=== PATIENT | female | born 1995 | race Caucasian/White ===

== ENCOUNTER 2021-03-10 12:45 | Emergency (ER) | payer OTHER, SELFPAY ==
[2021-03-10 13:00] VITALS: BP 128/92; PULSE 113; RESP 16; TEMP 37.1; O2SAT 99
--- NOTE | 2021-03-10 13:11 | ED.URI ---
HPI - URI/Sore Throat General Chief Complaint: Upper Respiratory Infection Stated Complaint: HEAD/BODY ACHES/CHILLS History of Present Illness HPI Narrative: This is a 25 year old with body aches, head ache, fever and loss of taste that started yesterday. Patient was around someone all weekend who tested positive on Monday. She is worried that she is positive. Patient has not had her vaccination for covid Related Data Allergies Allergy/AdvReac Type Severity Reaction Status Date / Time No Known Allergies Allergy Verified 03/10/21 13:16 Review of Systems Review of Systems: Narrative: CONSTITUTIONAL: reports fever, chills, or sweats. EYES: Denies visual changes, redness, or discharge. ENT: reports rhinorrhea, congestion, sore throat, or otalgia. CARDIOVASCULAR:Denies chest pain, palpitations, or edema. RESPIRATORY: Denies cough or dyspnea. GASTROINTESTINAL: Denies abdominal pain, reports nausea, vomiting, or diarrhea. GENITOURINARY: Denies dysuria or hematuria. SKIN:[Denies rash or itching. MUSCULOSKELETAL:Denies back pain, joint pain, or myalgia. NEUROLOGIC: Denies headache, numbness, or weakness. PSYCHIATRIC:Denies anxiety or depression PMFSH Social History Social History Gender identity (if verbalized by the patient): Female Comments At time as signature, I have reviewed and agree with nursing past medical, social, surgical and family history. Please see nursing chart for further information. There is no relevant family history pertinent to the presenting complaint. Exam Narrative: Exam Narrative: GENERAL:Well-appearing, well-nourished, and in no acute distress. lethargy HEAD:Normocephalic, atraumatic. EYES: PERRLA and EOMI. ENT: Nares clear, moderate rhinorrhea Mild great Mucous membranes moist. Pharyngeal erythema NECK: Supple. CHEST: Clear to auscultation. No respiratory distress. HEART: Regular rate and rhythm. No murmur heard. Normal peripheral pulses. ABDOMEN: Soft, nontender, nondistended, normal active bowel sounds. nausea and diarrhea EXTREMITIES: Normal range of motion. No edema. SKIN: Warm, dry, no rash. NEURO: No focal deficits. Alert and oriented x3. 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 Test positive Vital Signs Vital signs: Vital Signs Temperature 98.7 F 03/10/21 13:00 Pulse Rate 113 H 07/21/21 13:00 Respiratory Rate 16 03/10/21 13:00 Blood Pressure 128/92 H 03/10/21 13:00 Pulse Oximetry 99 03/10/21 13:00 Temperature 98.7 F 03/10/21 13:00 Pulse Rate 113 H 03/10/21 13:00 Respiratory Rate 16 03/10/21 13:00 Blood Pressure 128/92 H 03/10/21 13:00 Pulse Oximetry 99 03/10/21 13:00 MDM - URI/Sore Throat Differential Diagnosis Differential diagnosis: Likely upper respiratory infection, viral infection, bronchitis, influenza and pharyngitis Lab Data Labs: Lab Results 03/10/21 Range/Units 13:11 POC SARS CoV-2 Ag Positive (Negative) Discharge Plan Discharge Clinical Impression: COVID-19 Patient Disposition: Home, Self-Care Condition: Stable Instructions: Antibiotic Form, COVID-19 (Coronavirus Disease 2019) (ED), Face Coverings (Masks) and COVID-19 (ED) Additional Instructions: instructions FOR THE PATIENT AND HOUSEHOLD MEMBERS: Self-quarantine for at least 7 days from symptom onset plus 3 days after being symptom free. When self-quarantined, stay home and practice infection prevention practices including: ? Stay home when you are sick (fever, cough, upper respiratory infection symptoms) ? Wash your hands often with soap and water for 20 seconds or use an alcohol-based hand assistant infant teacher, especially before eating, after coughing or sneezing and after using the bathroom. ? Cover your cough or sneeze with a tissue and put the tissue in the trash. ? Avoid close contact with people who are sick. ? Avoid touching your nose, eyes and mouth. ? Clean and disinfect frequently touched objects and surfaces using a regular household elver
== END 2021-03-10 13:22 | disposition home or self-care (01) ==
PROVIDERS: Emergency Provider Nurse Practitioner Family; PCP Nurse Practitioner Adult Health
DX: U07.1 COVID-19 (principal); E03.9 Hypothyroidism, unspecified; Z86.16 Personal history of COVID-19
CPT/HCPCS: 87426; 99213; C9803; G0463

== ENCOUNTER → 2021-09-10 15:33 | Outpatient (CLI) | payer OTHER, SELFPAY ==
--- NOTE | ~2021-09-10 | US_ITS ---
EXAMINATION: US OB <= 14 weeks fetus DATE: 09/10/2021 15:57 INDICATION: First trimester dating and viability assessment TECHNIQUE: Real-time pelvic transabdominal and transvaginal ultrasound was performed. COMPARISON: None. FINDINGS: The uterus measures 15 x 7.1 x 9.1 cm. There is an intrauterine gestational sac. A yolk sa c is identified. heart motion is identified measuring 155 beats per minute (bpm) by M-mode Dopp ler. The crown rump length measures 6.1 cm , which correlates with an estimated gestational age of 12 weeks and 4 day(s) (+/-) 8 day(s). The ovaries are not visualized however no adnexal abnormality is seen. There is no free fluid in the pelvis. IMPRESSION: 1. Live intrauterine with an estimated gestational age of 12 weeks and 4 day(s) (+/-) 8 day (s) and an estimated delivery date of 03/21/2022. Reviewed, dictated and finalized at location F. NSIONAL INSPECTOR IMPRESSION: 1. Live intrauterine with an estimated gestational age of 12 weeks an d 4 day(s) (+/-) 8 day(s) and an estimated delivery date of 03/21/2022.
== END ==
PROVIDERS: Visit Provider Obstetrics & Gynecology
DX: N94.89 Other specified conditions associated with female genital organs and menstrual cycle (principal); Z36.9 Encounter for antenatal screening, unspecified; Z3A.12 12 weeks gestation of pregnancy
CPT/HCPCS: 76801

== ENCOUNTER 2021-09-29 11:13 | Outpatient (CLI) | payer OTHER, SELFPAY ==
[2021-09-29 11:48] VITALS: BP 132/69; PULSE 95
[2021-09-29 11:59] LABS: Basophils Percent Auto 0.3 % (0.2-1.2); Eosinophils Percent Auto 0.3 % (0-4.4); Hematocrit 36.5 % (37.0-47.0); Hemoglobin 12.5 g/dL (12.0-15.0); Immature Granulocyte Absolute 0.01 K/mm3 (0.00-0.031); Immature Granulocyte Percent A 0.1 % (0-0.5); Lymphocytes Absolute Auto 1.86 K/mm3 (0.9-3.2); Lymphocytes Percent Auto 20.7 % (18.3-44.2); Mean Corpuscular HGB Conc 34.2 g/dl (32-36); Mean Corpuscular Hemoglobin 27.7 pg (26-34); Mean Corpuscular Volume 80.8 fl (80-100); Mean Platelet Volume 8.7 fl (7.4-10.4); Monocytes Absolute Auto 0.4 K/mm3 (0.1-0.6); Monocytes Percent Auto 4.3 % (2.6-8.5); Neutrophils Absolute Auto 6.7 K/mm3 (1.3-6.7); Neutrophils Percent Auto 74.3 % (45.5-73.1); Platelet Count Result 309 k/mm3 (150-375); Red Blood Count 4.52 M/mm3 (4.2-5.4)
[2021-09-29 12:00] LABS: Add Urine Microscopic? YES; Appearance Urine Clear (Clear); Bilirubin Urine Negative (Negative); Blood Urine Negative (Negative); Color Urine Straw (Yellow); Glucose Urine UA Negative (Negative); Ketones Urine Negative (Negative); Leukocyte Esterase Ur Trace LEU/UL (NEGATIVE); Mucus Urine Rare /lpf; Nitrate Urine Negative (Negative); Protein Urine Negative (Negative); RBC Urine 0-2 /hpf (0-2); Squamous Epithelial Cell Urine Rare /hpf (Few); Urobilinogen Urine Negative mg/dL (<2.0); WBC Urine 0-3 /hpf (0-3)
[2021-09-29 12:01] VITALS: BP 112/67; PULSE 75
[2021-09-29 12:04] LABS: Creatinine Urine 17.9 mg/dL; Total Protein Urine Random 15 mg/dL; Ur Ttl Prot Creatinine Ratio 0.84 mg/mg (0-0.20)
[2021-09-29 12:06] LABS: Alanine Aminotransferase 17 U/L (4-35); Albumin Level 4.1 g/dL (3.5-5.1); Alkaline Phosphatase 85 U/L (38-126); Anion Gap 6 mmol/L (8-16); Aspartate Amino Transferase 23 U/L (14-36); Bilirubin,Total 0.5 mg/dL (0.2-1.3); Blood Urea Nitrogen 4 mg/dL (7-17); Calcium 9.6 mg/dL (8.4-10.2); Carbon Dioxide 21 mmol/L (22-30); Chloride 106 mmol/L (98-107); Estimated Glomerular Filt Rate > 60; Glucose 81 mg/dL (65-110); Potassium 3.6 mmol/L (3.4-5.0); Sodium 133 mmol/L (137-145); Uric Acid 4.1 mg/dL (2.5-7.5)
[2021-09-29 12:15] VITALS: BP 114/59; PULSE 98
[2021-09-29 12:17] LABS: Specific Grav Ur 1.001 (1.001-1.035)
[2021-09-29 12:31] VITALS: BP 87/50; PULSE 102
== END 2021-09-29 12:45 | disposition home or self-care (01) ==
LOC: ANHOBOP 11:19 → ANHOBPP 11:20
PROVIDERS: PCP Nurse Practitioner Adult Health; Visit Provider Obstetrics & Gynecology
DX: R80.9 Proteinuria, unspecified (principal)
CPT/HCPCS: 36415; 80053; 81001; 82570; 84156; 84550; 85025; 87086; 87088; 99199

== ENCOUNTER 2021-09-30 13:31 | Outpatient (CLI) | payer OTHER, SELFPAY ==
[2021-09-30 13:52] VITALS: BMI 42.4
[2021-09-30 15:35] LABS: Collection Time Urine 24 HOURS; Patient Weight 217 Lbs; Total Volume 24 Hour Urine 2000 ml
[2021-09-30 15:44] LABS: Creatinine Clearance Urine 145.6 ml/min (75-125); Total Protein Urine 24 Hr 300 mg/24hr (28-141); Total Protein Urine Random 15 mg/dL
== END 2021-09-30 13:32 | disposition home or self-care (01) ==
LOC: ANHOBOP 13:33
PROVIDERS: PCP Nurse Practitioner Adult Health; Visit Provider Obstetrics & Gynecology
DX: O12.12 Gestational proteinuria, second trimester (principal); Z3A.15 15 weeks gestation of pregnancy
CPT/HCPCS: 81050; 82575; 84156

== ENCOUNTER 2021-12-16 12:17 | Outpatient (CLI) | payer OTHER, SELFPAY ==
[2021-12-16 13:48] LABS: Basophils Percent Auto 0.3 % (0.2-1.2); Eosinophils Percent Auto 0.4 % (0-4.4); Hematocrit 34.5 % (37.0-47.0); Hemoglobin 11.6 g/dL (12.0-15.0); Immature Granulocyte Absolute 0.02 K/mm3 (0.00-0.031); Immature Granulocyte Percent A 0.2 % (0-0.5); Lymphocytes Absolute Auto 1.75 K/mm3 (0.9-3.2); Lymphocytes Percent Auto 19.1 % (18.3-44.2); Mean Corpuscular HGB Conc 33.6 g/dl (32-36); Mean Corpuscular Hemoglobin 28.3 pg (26-34); Mean Corpuscular Volume 84.1 fl (80-100); Mean Platelet Volume 8.8 fl (7.4-10.4); Monocytes Absolute Auto 0.4 K/mm3 (0.1-0.6); Monocytes Percent Auto 4.5 % (2.6-8.5); Neutrophils Absolute Auto 6.9 K/mm3 (1.3-6.7); Neutrophils Percent Auto 75.5 % (45.5-73.1); Platelet Count Result 329 k/mm3 (150-375); Red Cell Distribution Width 13.6 % (11.5-14.5); White Blood Count 9.2 K/mm3 (4.5-10.0)
[2021-12-16 14:01] LABS: Alanine Aminotransferase 23 U/L (4-35); Albumin Level 3.8 g/dL (3.5-5.1); Alkaline Phosphatase 108 U/L (38-126); Anion Gap 9 mmol/L (8-16); Aspartate Amino Transferase 29 U/L (14-36); Bilirubin,Total 0.2 mg/dL (0.2-1.3); Blood Urea Nitrogen 6 mg/dL (7-17); Calcium 8.8 mg/dL (8.4-10.2); Carbon Dioxide 21 mmol/L (22-30); Chloride 105 mmol/L (98-107); Estimated Glomerular Filt Rate > 60; Glucose 141 mg/dL (65-110); Glucose 1 Hour PP 50gm Dose 140 mg/dL; Potassium 3.1 mmol/L (3.4-5.0); Sodium 135 mmol/L (137-145)
[2021-12-16 14:41] LABS: HIV 1/2 Ab P24 Ag Result Negative (Negative)
== END 2021-12-16 12:18 | disposition home or self-care (01) ==
LOC: ANHLAB 12:21
PROVIDERS: PCP Nurse Practitioner Adult Health; Visit Provider Obstetrics & Gynecology
DX: O09.299 Supervision of pregnancy with other poor reproductive or obstetric history, unspecified trimester (principal); E03.9 Hypothyroidism, unspecified; Z3A.00 Weeks of gestation of pregnancy not specified
CPT/HCPCS: 36415; 80053; 82947; 84443; 85025; 86703; G0432

== ENCOUNTER 2021-12-20 08:02 | Outpatient (CLI) | payer OTHER, SELFPAY ==
[2021-12-20 08:36] LABS: Glucose Fasting Gestational 83 mg/dL (>/=95)
[2021-12-20 10:20] LABS: Glucose 1 Hour Gest 146 mg/dL (>/=180)
[2021-12-20 11:19] LABS: Glucose 2 Hour Gest 108 mg/dL (>/= 155)
[2021-12-20 12:04] LABS: Glucose 3 Hour Gest 133 mg/dL (>/=140)
== END 2021-12-20 08:03 | disposition home or self-care (01) ==
LOC: ANHLAB 08:03
PROVIDERS: PCP Nurse Practitioner Adult Health; Visit Provider Obstetrics & Gynecology
DX: R73.09 Other abnormal glucose (principal)
CPT/HCPCS: 36415; 82951; 82952

== ENCOUNTER 2021-12-22 12:23 | Outpatient (CLI) | payer OTHER, SELFPAY ==
[2021-12-22 14:29] LABS: Total Volume 24 Hour Urine 2400 ml
[2021-12-22 14:45] LABS: Total Protein Urine 24 Hr 432 mg/24hr (28-141); Total Protein Urine Random 18 mg/dL
[2021-12-22 14:47] LABS: Creatinine 24 Hour Urine 1.1 gm/24 (0.8-1.8)
== END 2021-12-22 12:24 | disposition home or self-care (01) ==
PROVIDERS: PCP Nurse Practitioner Adult Health; Visit Provider Obstetrics & Gynecology
DX: O09.299 Supervision of pregnancy with other poor reproductive or obstetric history, unspecified trimester (principal); E03.9 Hypothyroidism, unspecified; Z3A.00 Weeks of gestation of pregnancy not specified
CPT/HCPCS: 81050; 82570; 84156

== ENCOUNTER 2022-02-04 14:44 | Outpatient (CLI) | payer OTHER, SELFPAY ==
[2022-02-04 15:06] LABS: Basophils Percent Auto 0.3 % (0.2-1.2); Eosinophils Percent Auto 0.2 % (0-4.4); Hematocrit 36.5 % (37.0-47.0); Immature Granulocyte Absolute 0.02 K/mm3 (0.00-0.031); Immature Granulocyte Percent A 0.2 % (0-0.5); Lymphocytes Absolute Auto 2.07 K/mm3 (0.9-3.2); Lymphocytes Percent Auto 23.5 % (18.3-44.2); Mean Corpuscular HGB Conc 32.9 g/dl (32-36); Mean Corpuscular Hemoglobin 27.4 pg (26-34); Mean Corpuscular Volume 83.3 fl (80-100); Mean Platelet Volume 8.7 fl (7.4-10.4); Monocytes Absolute Auto 0.5 K/mm3 (0.1-0.6); Monocytes Percent Auto 5.8 % (2.6-8.5); Neutrophils Absolute Auto 6.1 K/mm3 (1.3-6.7); Platelet Count Result 335 k/mm3 (150-375); Red Blood Count 4.38 M/mm3 (4.2-5.4); Red Cell Distribution Width 13.2 % (11.5-14.5); White Blood Count 8.8 K/mm3 (4.5-10.0)
[2022-02-04 16:20] LABS: Alanine Aminotransferase 10 U/L (6-35); Albumin Level 3.6 g/dL (3.5-5.1); Alkaline Phosphatase 155 U/L (38-126); Anion Gap 5 mmol/L (8-16); Aspartate Amino Transferase 17 U/L (14-36); Bilirubin,Total 0.3 mg/dL (0.2-1.3); Blood Urea Nitrogen 5 mg/dL (7-17); Calcium 9.2 mg/dL (8.4-10.2); Carbon Dioxide 22 mmol/L (22-30); Chloride 105 mmol/L (98-107); Estimated Glomerular Filt Rate > 60; Glucose 73 mg/dL (65-110); Lactate Dehydrogenase 338 U/L (313-618); Potassium 4.3 mmol/L (3.4-5.0); Sodium 132 mmol/L (137-145); Uric Acid 4.5 mg/dL (2.5-7.5)
== END 2022-02-04 14:45 | disposition home or self-care (01) ==
LOC: ANHLAB 14:47
PROVIDERS: PCP Nurse Practitioner Adult Health; Visit Provider Obstetrics & Gynecology
DX: O09.299 Supervision of pregnancy with other poor reproductive or obstetric history, unspecified trimester (principal); Z3A.00 Weeks of gestation of pregnancy not specified
CPT/HCPCS: 36415; 80053; 83615; 84550; 85025

== ENCOUNTER 2022-02-19 19:20 | Outpatient (CLI) | payer OTHER, SELFPAY ==
[2022-02-19] VITALS (13 sets, daily range): BP systolic 121–139; BP diastolic 75–102; PULSE 82–106
[2022-02-19 19:52] LABS: Basophils Percent Auto 0.4 % (0.2-1.2); Eosinophils Percent Auto 0.4 % (0-4.4); Hematocrit 33.5 % (37.0-47.0); Hemoglobin 11.2 g/dL (12.0-15.0); Immature Granulocyte Absolute 0.03 K/mm3 (0.00-0.031); Immature Granulocyte Percent A 0.4 % (0-0.5); Lymphocytes Absolute Auto 0.79 K/mm3 (0.9-3.2); Lymphocytes Percent Auto 10.9 % (18.3-44.2); Mean Corpuscular HGB Conc 33.4 g/dl (32-36); Mean Corpuscular Hemoglobin 27.6 pg (26-34); Mean Corpuscular Volume 82.5 fl (80-100); Mean Platelet Volume 8.9 fl (7.4-10.4); Monocytes Absolute Auto 0.7 K/mm3 (0.1-0.6); Monocytes Percent Auto 9.4 % (2.6-8.5); Neutrophils Absolute Auto 5.7 K/mm3 (1.3-6.7); Neutrophils Percent Auto 78.5 % (45.5-73.1); Platelet Count Result 278 k/mm3 (150-375); Red Blood Count 4.06 M/mm3 (4.2-5.4); Red Cell Distribution Width 13.4 % (11.5-14.5); White Blood Count 7.2 K/mm3 (4.5-10.0)
[2022-02-19 19:55] LABS: Appearance Urine Clear (Clear); Bilirubin Urine Negative (Negative); Blood Urine Negative (Negative); Color Urine Yellow (Yellow); Glucose Urine UA Negative (Negative); Ketones Urine Negative (Negative); Leukocyte Esterase Ur 2+ LEU/UL (NEGATIVE); Nitrate Urine Negative (Negative); Protein Urine Negative (Negative); Specific Grav Ur 1.015 (1.001-1.035); Urobilinogen Urine 0.2 mg/dL (<2.0)
[2022-02-19 20:02] LABS: Alanine Aminotransferase 11 U/L (6-35); Albumin Level 3.4 g/dL (3.5-5.1); Alkaline Phosphatase 157 U/L (38-126); Anion Gap 4 mmol/L (8-16); Aspartate Amino Transferase 17 U/L (14-36); Bilirubin,Total 0.1 mg/dL (0.2-1.3); Blood Urea Nitrogen 4 mg/dL (7-17); Calcium 8.7 mg/dL (8.4-10.2); Carbon Dioxide 22 mmol/L (22-30); Chloride 106 mmol/L (98-107); Estimated Glomerular Filt Rate > 60; Glucose 78 mg/dL (65-110); Potassium 3.9 mmol/L (3.4-5.0); Sodium 132 mmol/L (137-145); Uric Acid 4.5 mg/dL (2.5-7.5)
[2022-02-19 20:03] LABS: Total Protein Urine Random 17 mg/dL; Ur Ttl Prot Creatinine Ratio 0.22 mg/mg (0-0.20)
[2022-02-19 20:10] LABS: Bacteria Urine Trace /hpf; RBC Urine 0-2 /hpf (0-2); Squamous Epithelial Cell Urine Many /hpf (Few); WBC Urine 21-30 /hpf (0-3)
[2022-02-19 20:14] LABS: Add Urine Microscopic? YES
[2022-02-19] MEDS: METOCLOPRAMIDE HCL 10 MG TABLET PO (21:21)
[2022-02-19] MEDS: diphenhydrAMINE HCl CAP 25 MG CAPSULE PO (21:21)
== END 2022-02-19 23:00 | disposition home or self-care (01) ==
LOC: ANHOBOP 19:23 → ANHOBPP 19:26
PROVIDERS: Obstetrics & Gynecology Gynecology; PCP Nurse Practitioner Adult Health; Visit Provider Obstetrics & Gynecology
DX: O13.9 Gestational [pregnancy-induced] hypertension without significant proteinuria, unspecified trimester (principal); Z3A.00 Weeks of gestation of pregnancy not specified
CPT/HCPCS: 36415; 80053; 81001; 82570; 84156; 84550; 85025; 87086; 87088; 99199; A9270

== ENCOUNTER 2022-02-20 19:28 | Outpatient (NON) | payer OTHER, SELFPAY ==
[2022-02-20 19:46] VITALS: BMI 43.0
[2022-02-20 22:31] LABS: Collection Time Urine 24 HOURS
[2022-02-20 22:41] LABS: Total Protein Urine Random 17 mg/dL
[2022-02-20 22:43] LABS: Total Protein Urine 24 Hr 408 mg/24hr (28-141); Total Volume 24 Hour Urine 2400 ml
[2022-02-20 22:45] LABS: Creatinine Urine 21.5 mg/dL; Patient Weight 220 Lbs
[2022-02-20 22:46] LABS: Total Volume 24 Hour Urine 2400 ml
== END 2022-02-20 19:29 | disposition home or self-care (01) ==
LOC: ANHOBOP 19:42
PROVIDERS: Obstetrics & Gynecology Gynecology; PCP Nurse Practitioner Adult Health; Visit Provider Obstetrics & Gynecology
DX: O13.9 Gestational [pregnancy-induced] hypertension without significant proteinuria, unspecified trimester (principal)
CPT/HCPCS: 81050; 82575; 84156

== ENCOUNTER 2022-02-21 10:44 | Outpatient (RCR) | payer OTHER, SELFPAY ==
[2022-01-10 11:56] VITALS: BP 126/77; PULSE 92
[2022-01-17 10:56] VITALS: BP 130/84; PULSE 84
[2022-01-31 13:47] VITALS: BP 135/79; PULSE 83
[2022-02-07 12:27] VITALS: BP 143/97; PULSE 114
[2022-02-09 11:03] VITALS: BP 131/95; PULSE 105
[2022-02-14 11:17] VITALS: BP 133/88; PULSE 93
--- NOTE | ~2022-02-21 | US_ITS ---
EXAMINATION: US OB BPP wo non-stress DATE: 01/24/2022 11:05 CDT INDICATION: History of preeclampsia. TECHNIQUE: Real-time transabdominal obstetric ultrasound. FINDINGS: Ultrasound dated 09/10/2021 There is a single living fetus in breech presentation. The placenta is anterior without placenta pre via. cardiac activity and movement is noted with a heart rate of 132 beats per minute. Biophysical profile: breathin of 2 movement: 2 of 2 tone: 2 of 2 Amniotic flud pocket: 2 of 2 Total score: 8 of 8 IMPRESSION: 1. Single living intrauterine in breech presentation. 2: Total biophysical profile score of 8/8. Reviewed, dictated and finalized at location B.
--- NOTE | ~2022-02-21 | US_ITS ---
EXAMINATION: US OB BPP wo non-stress DATE: 01/31/2022 12:17 INDICATION: History of preeclampsia. Third trimester. TECHNIQUE: Real-time pelvic ultrasound was performed. COMPARISON: None. FINDINGS: There is a single living fetus in vertex presentation. The placenta is anterior. heart rate is 136 beats per minute (bpm). Biophysical profile performed by the technologist: breathing (30 sec sustained breathing in 30 minutes): 2 out of 2 movement (3 gross body movements in 30 minutes): 2 out of 2 tone (one episode of smdoghs-fytqvhgsm-txuevdv limb movement): 2 out of 2 Amniotic fluid pocket (2 cm): 2 out of 2 Total score: 8 out of 8 IMPRESSION: 1. Single living fetus in vertex presentation. 2. Biophysical profile 8 out of 8. Reviewed, dictated and finalized at location B.
--- NOTE | ~2022-02-21 | US_ITS ---
EXAMINATION: US OB BPP wo non-stress DATE: 02/07/2022 11:54 INDICATION: History of preeclampsia, third trimester TECHNIQUE: Real-time pelvic ultrasound was performed. The interpreting radiologist was not present fo r the study. COMPARISON: 01/31/2022 FINDINGS: There is a single living fetus in vertex presentation. The placenta is anterior. heart rate is 142 beats per minute (bpm). Biophysical profile performed by the technologist: breathing (30 sec sustained breathing in 30 minutes): 2 out of 2 movement (3 gross body movements in 30 minutes): 2 out of 2 tone (one episode of zwufntm-ibibgqwpk-awgtzyu limb movement): 2 out of 2 Amniotic fluid pocket (2 cm): 2 out of 2 Total score: 8 out of 8 IMPRESSION: 1. Single living fetus in vertex presentation. 2. Biophysical profile 8 out of 8. Reviewed, dictated and finalized at location A.
--- NOTE | ~2022-02-21 | US_ITS ---
EXAMINATION: US OB BPP wo non-stress DATE: 02/14/2022 11:45 INDICATION: History of preeclampsia, third trimester TECHNIQUE: Real-time pelvic ultrasound was performed. The interpreting radiologist was not present fo r the study. COMPARISON: 02/07/2022 FINDINGS: There is a single living fetus in vertex presentation. The placenta is anterior. heart rate is 129 beats per minute (bpm). Biophysical profile performed by the technologist: breathing (30 sec sustained breathing in 30 minutes): 2 out of 2 movement (3 gross body movements in 30 minutes): 2 out of 2 tone (one episode of kbmsaet-bsreaiisl-knmjuee limb movement): 2 out of 2 Amniotic fluid pocket (2 cm): 2 out of 2 Total score: 8 out of 8 IMPRESSION: 1. Single living fetus in vertex presentation. 2. Biophysical profile 8 out of 8. Reviewed, dictated and finalized at location A.
[2022-02-21 10:44] VITALS: BP 134/87; PULSE 93
== END 2022-04-01 14:52 | disposition home or self-care (01) ==
LOC: ANHOBOP 10:44
PROVIDERS: PCP Nurse Practitioner Adult Health; Visit Provider Obstetrics & Gynecology
DX: O16.3 Unspecified maternal hypertension, third trimester (principal); O36.63X0 Maternal care for excessive fetal growth, third trimester, not applicable or unspecified; O40.3XX0 Polyhydramnios, third trimester, not applicable or unspecified; Z3A.30 30 weeks gestation of pregnancy; Z3A.32 32 weeks gestation of pregnancy; O36.8130 Decreased fetal movements, third trimester, not applicable or unspecified; Z3A.34 34 weeks gestation of pregnancy; Z3A.36 36 weeks gestation of pregnancy; Z87.59 Personal history of other complications of pregnancy, childbirth and the puerperium
CPT/HCPCS: 59025; 76819

== ENCOUNTER 2022-02-28 16:15 | Inpatient (IN) | payer OTHER, SELFPAY ==
[2022-02-28] VITALS (24 sets, daily range): BP systolic 115–154; BP diastolic 78–109; PULSE 69–123; RESP 18; TEMP 36.1–36.4; BMI 43.0
--- NOTE | 2022-02-28 16:37 | PM.IMHP ---
H&P: HPI History of Present Illness Date/Time: 02/28/22 16:37 Chief Complaint: Induction of labor Narrative: Melani is a 26yo @ 37.0wks (ELANA 03/21/22) who presents for medical induction of labor. She has a complex OB history due to HTN. She was diagnosed early on w/ proteinuria but had normal BPs in the first trimester. She had repeat 24 hr urine that showed a small increase in protein but her BPs remained stable until this last week she has been having more mild range BPs. No severe BPs or symptoms of PEC. She has been undergoing ANT; reassuring. Good movement. Her has been complicated by: 1. H/o PEC in prior ; on ASA 162-- likely CHTN vs GHTN 2. Proteinuria; 24hr urine 300mg protein --> 432g , 408g 3. Obesity 4. H/o kidney stones 5. H/o hypothyroidism; TSH 3.19 --> 2.02 6. Polyhydramnios; EFW 93%ile 7. Elevated 1 hour; normal 3 hour 8. Depression/anxiety on lexapro Review of Systems Review of Systems: All systems reviewed & are unremarkable except as noted in HPI and below PMFSH Past Medical History Medical History Anxiety Blood glucose abnormal Hypothyroidism Kidney stones Preeclampsia Suppression of menstruation Surgical History Surgical History H/O lithotripsy (~08/21/13) right kidney stones Family History Family History Grandparent Heart disease Lung cancer Sibling Gestational [-induced] hypertension without significant proteinuria, second trimester Gestational [-induced] hypertension without significant proteinuria, third trimester Hypothyroidism Mother Gestational [-induced] hypertension without significant proteinuria, third trimester Social History Social History Smoking status: Never smoker Alcohol intake: never Substance use: never Substance use type: does not use Additional living arrangements comments: spouse 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 Gender identity (if verbalized by the patient): Female Sexual Orientation (if Verbalized by the Patient): Straight or Heterosexual Spiritual care concerns: No Meds Home Medications and Allergies Home Medications Medication Instructions Recorded Confirmed Type vitamins-iron fumarate 65 1 tablet PO DAILY 09/07/21 01/05/22 History mg iron-folic acid 1 mg tablet famotidine 20 mg tablet (Pepcid) 20 mg PO BID #30 tabs 10/13/21 01/10/22 Rx aspirin 81 mg chewable tablet 162 mg PO DAILY 11/11/21 01/10/22 History escitalopram oxalate 10 mg tablet 10 mg PO DAILY #90 tabs 01/05/22 01/05/22 Rx (Lexapro) ferrous sulfate 325 mg (65 mg 325 mg PO 2XW 02/23/22 02/23/22 History iron) tablet Allergies Allergy/AdvReac Type Severity Reaction Status Date / Time No Known Allergies Allergy Verified 02/23/22 13:43 Exam Const: General: cooperative, comfortable and no acute distress Nutritional Appearance: obese morbidly obese Resp: Effort & Inspection: normal respiratory effort Cardio: Rate: regular rate GI: GI Palp: Yes Soft to palpation and No Tenderness to palpation present (GI) : Other: FHT's: 150's/ mod triston/ no accels/ no decels - cat 1 TOCO: irritability Cervix: 1/50/-3 Presentation: cephalic Membranes: intact, GBS negative Skin: General skin exam: normal color Neuro: General: patient oriented x3 Extrem: General: normal to inspection Psych: Appearance: grossly normal Affect: normal affect Attitude: cooperative Assessment and Plan Assessment and plan (1) Pre-eclampsia added to pre-existing hypertension: Code(s): O11.9 - Pre-existing hypertension with pre-eclampsia, unspecified trimester Status: Acute (2) Hypothyroid: Code(s): E03.9 - Hypothyroidism, unspecified
--- NOTE | 2022-02-28 16:51 | WPDANESEPP ---
Anes - Eval Pre Procedure Procedure: Labor epidural Date/Time: 02/28/22 16:51 Surgeon: Gerardo Preop Diagnosis: Abd pain with contractions Pre Op Diagnosis: Induction of Labor Patient Data Age: 26 Gender: F Height: Weight: Last Vital Signs Pulse 123 H 02/28/22 16:40 BP 151/104 H 02/28/22 16:40 Allergies Allergy/AdvReac Type Severity Reaction Status Date / Time No Known Allergies Allergy Verified 02/23/22 13:43 Home Medications Medication Instructions Recorded Confirmed Type vitamins-iron fumarate 65 1 tablet PO DAILY 09/07/21 01/05/22 History mg iron-folic acid 1 mg tablet famotidine 20 mg tablet (Pepcid) 20 mg PO BID #30 tabs 10/13/21 01/10/22 Rx aspirin 81 mg chewable tablet 162 mg PO DAILY 11/11/21 01/10/22 History escitalopram oxalate 10 mg tablet 10 mg PO DAILY #90 tabs 01/05/22 01/05/22 Rx (Lexapro) ferrous sulfate 325 mg (65 mg 325 mg PO 2XW 02/23/22 02/23/22 History iron) tablet Patient hx anesthesia problems: none Family hx anesthesia problems: none Results Review: All pre-operative results and documents have been reviewed as part of the pre-operative evaluation. FORMERLY [facility], [facility] Past Medical History Medical History (Updated 02/28/22 @ 16:52 by Brad Sampson CRNA) Anxiety Blood glucose abnormal Hypothyroid Hypothyroidism Kidney stones Pre-eclampsia added to pre-existing hypertension Preeclampsia Suppression of menstruation Surgical History Surgical History H/O lithotripsy (~08/21/13) right kidney stones Family History Family History Grandparent Heart disease Lung cancer Sibling Gestational [-induced] hypertension without significant proteinuria, second trimester Gestational [-induced] hypertension without significant proteinuria, third trimester Hypothyroidism Mother Gestational [-induced] hypertension without significant proteinuria, third trimester Social History Social History Smoking status: Never smoker Alcohol intake: never Substance use: never Substance use type: does not use Additional living arrangements comments: spouse 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
--- NOTE | 2022-02-28 16:51 | WPDHPUPDATE1 ---
History and Physical Update Update Date/Time: 02/28/22 16:51 History and Physical has been reviewed, including an updated exam of the patient. There are NO changes in the patient's condition. Risks, benefits, and alternatives have been discussed and questions answered. Patient agrees to proceed with procedure.
[2022-02-28 17:14] LABS: Uric Acid 4.8 mg/dL (2.5-7.5)
[2022-02-28 17:17] LABS: Alanine Aminotransferase 12 U/L (6-35); Albumin Level 3.6 g/dL (3.5-5.1); Alkaline Phosphatase 169 U/L (38-126); Anion Gap 8 mmol/L (8-16); Aspartate Amino Transferase 21 U/L (14-36); Bilirubin,Total 0.4 mg/dL (0.2-1.3); Blood Urea Nitrogen 12 mg/dL (7-17); Calcium 9.4 mg/dL (8.4-10.2); Carbon Dioxide 19 mmol/L (22-30); Chloride 106 mmol/L (98-107); Estimated Glomerular Filt Rate > 60; Glucose 100 mg/dL (65-110); Potassium 4.1 mmol/L (3.4-5.0); Sodium 133 mmol/L (137-145)
[2022-02-28] MEDS: LACTATED RINGERS 1,000 ML 125 ML IV CONT (17:45)
[2022-02-28 18:20] LABS: Basophils Percent Auto 0.3 % (0.2-1.2); Eosinophils Percent Auto 0.2 % (0-4.4); Hematocrit 34.6 % (37.0-47.0); Hemoglobin 11.6 g/dL (12.0-15.0); Immature Granulocyte Absolute 0.03 K/mm3 (0.00-0.031); Immature Granulocyte Percent A 0.3 % (0-0.5); Lymphocytes Absolute Auto 2.01 K/mm3 (0.9-3.2); Lymphocytes Percent Auto 18.6 % (18.3-44.2); Mean Corpuscular HGB Conc 33.5 g/dl (32-36); Mean Corpuscular Hemoglobin 27.3 pg (26-34); Mean Corpuscular Volume 81.4 fl (80-100); Mean Platelet Volume 9.1 fl (7.4-10.4); Monocytes Absolute Auto 0.5 K/mm3 (0.1-0.6); Monocytes Percent Auto 4.7 % (2.6-8.5); Neutrophils Absolute Auto 8.2 K/mm3 (1.3-6.7); Neutrophils Percent Auto 75.9 % (45.5-73.1); Platelet Count Result 367 k/mm3 (150-375); Red Blood Count 4.25 M/mm3 (4.2-5.4); Red Cell Distribution Width 13.3 % (11.5-14.5); White Blood Count 10.8 K/mm3 (4.5-10.0)
[2022-02-28 18:42] LABS: HIV 1/2 Ab P24 Ag Result Negative (Negative)
[2022-02-28] MEDS: FAMOTIDINE 20 MG TABLET PO (18:46)
[2022-02-28] MEDS: DINOPROSTONE 10 MG VAG INSERT VAGINAL (19:24)
[2022-02-28] MEDS: LABETALOL HCL 100 MG TABLET 200 MG PO (19:37)
[2022-02-28] MEDS: ESCITALOPRAM OXALATE 10 MG TABLET PO (19:50)
[2022-03-01] VITALS (192 sets, daily range): BP systolic 80–162; BP diastolic 60–110; PULSE 61–193; RESP 16–18; TEMP 36.2–36.8; O2SAT 98–100
[2022-03-01] MEDS: LACTATED RINGERS 1,000 ML 125 ML IV CONT ×5 (01:35→17:54)
[2022-03-01] MEDS: CALCIUM CARBONATE (TUMS) 500 MG (200 MG ELEMENTAL) PO (03:35)
[2022-03-01] MEDS: LABETALOL HCL 100 MG TABLET 200 MG PO ×2 (07:15→19:25)
--- NOTE | 2022-03-01 07:17 | PM.OBPNLAB ---
Pain Control Date/time seen: 03/01/22 07:17 Pain control: tolerating well Pelvic Exam Dilation (cm): 3 Effacement (%): 50 station: -2 Amniotic membrane status: Ruptured (AROM, clear 0710) Contractions Monitor mode: Internal Contraction frequency: 3 Contraction pattern: Regular Status status: Category l Assessment and Plan Assessment: induction ongoing Plan: continuous present management Comments: will start pitocin augmentation BPs in moderate to severe range; will give dose of labetalol early--- continue 200mg BID
[2022-03-01 07:50] LABS: Rapid Plasma Reagin Non-Reactive (NonReactive)
[2022-03-01] MEDS: FAMOTIDINE 20 MG TABLET PO ×2 (08:06→18:58)
[2022-03-01] MEDS: SODIUM CHLORIDE 0.9% IV 300 ML 600 ML I-UTERINE (10:48)
[2022-03-01 11:00] LABS: Glucose Point of Care 76 mg/dl (65-105)
--- NOTE | 2022-03-01 11:50 | PM.OBPNLAB ---
Pain Control Date/time seen: 03/01/22 11:50 Pain control: epidural Pelvic Exam Dilation (cm): 4 (.5) Effacement (%): 80 station: -2 Amniotic membrane status: Ruptured (AROM, clear 0710) Contractions Monitor mode: Internal Contraction frequency: 2 (-4) Contraction pattern: Regular Contraction intensity: Mild Status status: Category ll (variables and early's; no accels, but moderate variability) Assessment and Plan Pitocin rate (mU/min): 2 Assessment: induction ongoing Plan: continuous present management Comments: - Popsicles, juice to try and wake baby - Continue amnioinfusion for small variables - Increase pitocin to 4mu to try and obtain more adequate contractions
--- NOTE | 2022-03-01 16:59 | PM.OBPNLAB ---
Pain Control Date/time seen: 03/01/22 16:59 Pain control: epidural Pelvic Exam Dilation (cm): 9 (.5) Effacement (%): 90 station: -2 Amniotic membrane status: Ruptured (AROM, clear 0710) Contractions Monitor mode: Internal Contraction frequency: 2 (-3) Contraction pattern: Regular Contraction intensity: Moderate Status status: Category ll (variables and early's; moderate variability) Assessment and Plan Pitocin rate (mU/min): 4 Assessment: active labor Plan: continuous present management
[2022-03-01] MEDS: ESCITALOPRAM OXALATE 10 MG TABLET PO (19:25)
[2022-03-01] MEDS: LACTATED RINGERS 1,000 ML 999 ML IV CONT (20:24)
--- NOTE | 2022-03-01 21:39 | PM.OBPNLAB ---
Pain Control Date/time seen: 03/01/22 21:39 Pain control: epidural Pelvic Exam Dilation (cm): 9 Effacement (%): 90 station: -2 Amniotic membrane status: Ruptured (AROM, clear 0710) Contractions Monitor mode: Internal Contraction frequency: 2 (-3) Contraction pattern: Regular Contraction intensity: Moderate Status status: Category ll (variables and early's; moderate variability) Assessment and Plan Pitocin rate (mU/min): 10 Plan: Comments: Patient meets criteria for arrest of active phase; has been stuck at 9cm with ROM and pitocin augmentation with IUPC in place showing inadequate contractions for > 6hrs per ACOG and IDPH guidelines. Will proceed with primary low transverse . Risks and benefits explained in detail.
[2022-03-01] MEDS: ONDANSETRON INJ 4 MG/2 ML VIAL IV PUSH (22:01)
[2022-03-01] MEDS: KETOROLAC 30 MG/ML VIAL (*BKC) IV PUSH (22:47)
--- NOTE | 2022-03-01 23:09 | PM.OBPRVD ---
OB - Delivery Note Procedure Delivery date: 03/01/22 Procedure: Procedures Operation Date: 03/01/22 21:45 <No data on this case meets the specified criteria> Events: Chronic Hypertension Intrapartal Events: Arrest of Dilation Induction method: Per Cervidil Protocol Delivery augmentation: Rupture of Membranes and Pitocin Delivery monitor: External FHT and Internal Uterine Route of delivery: Prior to decision for section, ACOG/[facility] labor guidelines were considered and discussed with the patient and staff. Decision made to proceed with the section.: Yes Specimen: Yes Quantitative Blood Loss (ml): 802 Anesthesia type: Epidural Disposition: Floor Baby Date of : 03/01/22 Time of : 22:21 Weeks of gestation at delivery: 37 (.1) Infant gender: Male Weight (pounds): 7 Weight (ounces): 3 presentation: vertex position: Right Occiput Anterior Placenta delivery description: Expressed Cord Vessel Description: 3 Vessels, Nuchal Cord, Loose and Delayed Cord Clamping score one minute: 4 score five minutes: 7 Narrative: She had arrest of active phase and was counseled on all risks and benefits in detail. She was taken to the operating room where epidural was found to be adequate. She was then prepped and draped in the normal sterile fashion. She received 2g Ancef and a time out was performed. A Pfannenstiel incision was made in the skin and carried down to the underlying fascia. The fascia was nicked on either side of the midline and the fascial incision was extended laterally and superiorly. The fascia was then elevated and the underlying rectus muscles were dissected off the fascia, superiorly and inferiorly. The rectus muscles were then in the midline and the peritoneum was entered bluntly. Once adequate exposure was obtained, a Mobius self retractor was placed within the abdomen. A bladder flap was created; the lower uterine segment was noted to be ballooned out and thin. A low transverse incision was made on the lower uterine segment and clear fluid was noted. The occiput was brought to the hysterotomy and the head was easily delivered. Nuchal cord was noted and delivered through because it was loose. The shoulder and body then followed without complications. The mouth and nose were bulb suctioned. The cord was clamped and cut and the was handed off to the awaiting pediatric nurse. A segment of the cord was collected for cord gases. The remaining cord blood was collected for typing. With pitocin infusing, the placenta delivered with gentle traction on the cord without complications. The uterus was then cleared out of all clots and debris using a clean, moist lap. The hysterotomy was then repaired in a running, interlocking fashion using 0 Vicryl. Two areas in the middle of the incision had brisk bleeding and two figure of eights were placed wth better hemostasis. A second layer imbricating suture was then made using 0 Vicryl. And additional figure of eight was placed on the right side. The hysterotomy was then found to be hemostatic and good uterine tone was noted. The bilateral adnexa were examined and found to be normal. The pelvis was cleared of all clots and fluid. The Mobius retractor was removed from the abdomen. The peritoneum, muscle, and fascia were examined and made hemostatic with bovie cautery. The fascia was then repaired using two separate 0 Vicryl sutures in a running fashion. The subcutaneous tissue was then irrigated and made hemostatic with bovie cautery. The subcutaneous tissue was then reapproximated using 2-0 Vicryl. The skin was then closed using 4-0 Monocryl in a running subcuticular fashion. Sponge, lap, needle and instrument counts were correct at the end of the procedure x2. The patient tolerated the procedure well and was taken to recovery in a stable condition. A mepilex dressing was placed over the incision. LILY Perdomo
[2022-03-02] VITALS (37 sets, daily range): BP systolic 97–136; BP diastolic 55–92; PULSE 76–110; RESP 16–18; TEMP 36.2–36.9; O2SAT 95–100
--- NOTE | 2022-03-02 01:53 | OBPPTRN ---
Patient transferred to post room #286 via stretcher. Support person present. Oriented to unit, room, information board, rooming in, admission packet and security measures. Patient verbalizes understanding.
[2022-03-02] MEDS: KETOROLAC 30 MG/ML VIAL (*BKC) IV PUSH ×2 (04:32→10:17)
[2022-03-02 05:43] LABS: Basophils Absolute Auto 0.1 K/mm3 (0.0-0.1); Basophils Percent Auto 0.3 % (0.2-1.2); Immature Granulocyte Absolute 0.09 K/mm3 (0.00-0.031); Immature Granulocyte Percent A 0.5 % (0-0.5); Lymphocytes Percent Auto 9.9 % (18.3-44.2); Mean Corpuscular HGB Conc 33.3 g/dl (32-36); Mean Corpuscular Hemoglobin 27.5 pg (26-34); Mean Corpuscular Volume 82.6 fl (80-100); Monocytes Absolute Auto 0.9 K/mm3 (0.1-0.6); Monocytes Percent Auto 5.5 % (2.6-8.5); Neutrophils Absolute Auto 14.3 K/mm3 (1.3-6.7); Neutrophils Percent Auto 83.8 % (45.5-73.1); Platelet Count Result 274 k/mm3 (150-375); Red Blood Count 3.27 M/mm3 (4.2-5.4); Red Cell Distribution Width 13.4 % (11.5-14.5); White Blood Count 17.1 K/mm3 (4.5-10.0)
[2022-03-02 05:53] LABS: Alanine Aminotransferase 11 U/L (6-35); Albumin Level 2.2 g/dL (3.5-5.1); Alkaline Phosphatase 111 U/L (38-126); Anion Gap 3 mmol/L (8-16); Aspartate Amino Transferase 16 U/L (14-36); Bilirubin,Total 0.2 mg/dL (0.2-1.3); Blood Urea Nitrogen 10 mg/dL (7-17); Carbon Dioxide 22 mmol/L (22-30); Chloride 107 mmol/L (98-107); Estimated CRCL calculation 89 ml/min; Estimated Glomerular Filt Rate > 60; Glucose 111 mg/dL (65-110); Potassium 4.3 mmol/L (3.4-5.0); Sodium 132 mmol/L (137-145)
[2022-03-02] MEDS: DEXTROSE 5%/0.45% SOD CHL 1,000 ML 125 ML IV CONT (06:00)
--- NOTE | 2022-03-02 09:15 | WPDANLDNPN2 ---
Anes-Prog Note L&D-Neuraxial Date/Time: 03/02/22 09:15 Patient feedback: Patient satisfied with post-operative pain management.
--- NOTE | 2022-03-02 09:15 | WPDANLDPN2 ---
Anes-Prog Note L&D Date/Time: 03/02/22 09:15 Neuro status: Neuro function grossly intact. Vital Signs: Last Vital Signs Temp 36.5 C 03/02/22 07:50 Pulse 97 03/02/22 07:50 Resp 18 03/02/22 07:50 BP 118/66 03/02/22 07:50 Pulse Ox 100 03/02/22 07:50 O2 Del Method Room Air 03/02/22 04:30 Pain score (VAS): 0 I/O: Intake & Output 03/01/22 03/02/22 03/02/22 23:59 07:59 15:59 Intake Total 2000 200 Output Total 100 751 Balance 4440 -531 Patient feedback: Patient satisfied with anesthetic care.
[2022-03-02] MEDS: MULTIVIT/MIN/PREN/FOL AC/IRON TABLET 1 TAB PO (10:17)
[2022-03-02] MEDS: FAMOTIDINE 20 MG TABLET PO ×2 (10:17→17:26)
[2022-03-02] MEDS: POLYSACCHARIDE IRON COMPLEX 150 MG CAPSULE PO ×2 (10:17→17:25)
--- NOTE | 2022-03-02 12:11 | PM.OBPNVD ---
OB - PN: Subj Subjective Date/time seen: 03/02/22 12:11 Narrative: POD#1 Melani reports doing well today. Her bleeding is light. Her pain is controlled. She has tolerated regular diet and passed gas. She still has the shelby in place. She has not ambulated yet, about to get up in the chair. She denies any issues with her incision. She is breast feeding. She would like her son circumcised. OB - PN: Obj Data Labs CBC & Chem 7: 03/02/22 05:28 03/02/22 05:28 Labs: Laboratory Results - last 24 hr 03/02/22 03/02/22 05:28 05:28 WBC 17.1 H RBC 3.27 L Hgb 9.0 L Hct 27.0 L MCV 82.6 MCH 27.5 MCHC 33.3 RDW 13.4 Plt Count 274 MPV 9.0 Immature Gran % (Auto) 0.5 Neut % (Auto) 83.8 H Lymph % (Auto) 9.9 L [place] % (Auto) 5.5 Eos % (Auto) 0.0 Baso % (Auto) 0.3 Lymph # (Auto) 1.70 [place] # (Auto) 0.9 H Eos # (Auto) 0.0 Baso # (Auto) 0.1 Abs Immat Gran (auto) 0.09 H Absolute Neuts (auto) 14.3 H Absolute Nucleated RBC 0.0 Nucleated RBC % 0.0 Sodium 132 L Potassium 4.3 Chloride 107 Carbon Dioxide 22 Anion Gap 3 L BUN 10 Creatinine 0.90 Estim Creat Clear Calc 89 Estimated GFR > 60 Glucose 111 H Calcium 8.0 L Total Bilirubin 0.2 AST 16 ALT 11 Alkaline Phosphatase 111 Total Protein 5.0 L Albumin 2.2 L OB - PN A/P Assessment and Plan (1) S/P section: Code(s): Z98.891 - History of uterine scar from previous surgery Status: Acute (2) Arrested active phase of labor: Code(s): O62.1 - Secondary uterine inertia Status: Acute Plan day: 1 Plan: routine care Comments: - regular diet, SLIV - pain control - remove shelby Time Spent With Patient Time: Total time spent is greater than 50% in coordination of care (as documented) at patient's floor/unit and/or counseling patient: Review of Systems Constitutional: Constitutional: Denies chills, Denies fever(s) and Denies headache(s) Eyes: Eyes: Denies change in vision ENT: Denies dizziness and Denies headache(s) Cardiovascular: Cardiovascular: Denies chest pain, Denies palpitations and Denies dyspnea Respiratory: Respiratory: Denies cough and Denies dyspnea Gastrointestinal: Gastrointestinal: Denies nausea and Denies vomiting Genitourinary: Comments: normal bleeding Neurologic: Denies dizziness and Denies headache(s) Endocrine: Endocrine: Denies palpitations Exam Const: General: cooperative, comfortable and no acute distress Nutritional Appearance: obese Orientation/consciousness: patient oriented x3 Resp: Effort & Inspection: normal respiratory effort Auscultation: clear to auscultation bilaterally Cardio: Rate: regular rate GI: Inspection: non-distended and incision (covered with clean dressing) GI Palp: Yes abdominal tenderness (appropriate) and Yes Soft to palpation Auscultation: normal bowel sounds : Other: fundus firm Skin: General skin exam: normal color Neuro: General: patient oriented x3 Extrem: General: normal to inspection Psych: Appearance: grossly normal Affect: normal affect Attitude: cooperative
[2022-03-02] MEDS: HYDROcodone/acetaminophen (*CRX) 5-325 MG TABLET 1 TAB PO ×2 (14:11→23:14)
--- NOTE | 2022-03-02 16:45 | PC.NURSE ---
[id number] Consulted with patient to assess needs related to and as it relates to her medical history. Mother led conversation with her experience with feeding baby so far and is infant on the left breast using cross cradle positioning. Mother works well with her . On assessment it appears infant has a < 90 degree latch. Mother denies discomfort but but consent to have RN check the nipple for assessment. RN demonstrated detaching infant from the breast. Nipple is misshaped. Mother is encouraged to work on waiting for big, open wide gape before latching and making good efforts to latch in a deep optimal latch with no pain. Reviewed working with , breast, nipples and how to protect the nipples with an optimal deep latch, good positioning, and good hand washing. Encouraged understanding the benefits of skin to skin, responding to feeding cues, frequencies of feeding 8-12 times in 24 hours (approximately 2-3 hours), duration of feedings, milk production, intake/output feeding sheet and signs of adequate intake encouraging swallowing at the breast. Reviewed positioning and alignment, supporting breast, off-centered (asymmetrical latch) and leading with the chin with big open wide gape. latched optimally to the left breast in football position. Education given to mother of how to visualize suck/swallow ratios and drinking at the breast. Infant was able to maintain latch without discomfort to mother. Nipple care reviewed with optimal latch and good positioning. Resources used to facilitate learning were used from the mom and baby guide. Mother voiced understanding of the education shared, calling for assistance if the does not latch or if there is discomfort with . Reported to the primary RN.
[2022-03-02] MEDS: DOCUSATE SODIUM 100 MG CAPSULE PO (17:26)
[2022-03-02] MEDS: IBUPROFEN 600 MG TABLET PO ×2 (17:26→23:15)
[2022-03-02] MEDS: ESCITALOPRAM OXALATE 10 MG TABLET PO (23:14)
[2022-03-03 00:20] VITALS: BP 126/72; PULSE 99; RESP 18; TEMP 37.1
[2022-03-03 05:50] VITALS: BP 126/82; PULSE 89
--- NOTE | 2022-03-03 07:46 | PM.OBPNVD ---
OB - PN: Subj Subjective Date/time seen: 03/03/22 07:46 Narrative: POD#2 Melani reports doing well today. Her bleeding is light. Her pain is controlled, but higher today since the epidural wore off. She is tolerating regular diet, voiding, passing gas, and ambulating without issues. She denies any issues with her incision. She is breast feeding. Would like to go home tomorrow. OB - PN: Obj Data Labs CBC & Chem 7: 03/02/22 05:28 03/02/22 05:28 OB - PN A/P Plan day: 2 Plan: routine care and discharge home (tomorrow) Comments: - Pelvic rest; take meds as prescribed - Incision care/no heavy lifting - ER return precautions: fever, n/v/abd pain, bleeding, HTN Time Spent With Patient Time: Total time spent is greater than 50% in coordination of care (as documented) at patient's floor/unit and/or counseling patient: Review of Systems Constitutional: Constitutional: Denies chills, Denies fever(s) and Denies headache(s) Eyes: Eyes: Denies change in vision ENT: Denies dizziness and Denies headache(s) Cardiovascular: Cardiovascular: Denies chest pain, Denies palpitations and Denies dyspnea Respiratory: Respiratory: Denies cough and Denies dyspnea Gastrointestinal: Gastrointestinal: Denies nausea and Denies vomiting Genitourinary: Comments: normal bleeding Neurologic: Denies dizziness and Denies headache(s) Endocrine: Endocrine: Denies palpitations Exam Const: General: cooperative, comfortable and no acute distress Orientation/consciousness: patient oriented x3 Resp: Effort & Inspection: normal respiratory effort Auscultation: clear to auscultation bilaterally Cardio: Rate: regular rate GI: Inspection: non-distended and incision (covered with clean dressing) GI Palp: Yes abdominal tenderness (appropriate) and Yes Soft to palpation Auscultation: normal bowel sounds : Other: fundus firm Skin: General skin exam: normal color Neuro: General: patient oriented x3 Extrem: General: normal to inspection Psych: Appearance: grossly normal Affect: normal affect Attitude: cooperative
[2022-03-03] MEDS: FAMOTIDINE 20 MG TABLET PO ×2 (08:02→17:35)
[2022-03-03] MEDS: DOCUSATE SODIUM 100 MG CAPSULE PO (08:02)
[2022-03-03] MEDS: IBUPROFEN 600 MG TABLET PO ×3 (08:03→22:15)
[2022-03-03] MEDS: HYDROcodone/acetaminophen (*CRX) 10-325 MG TABLET 1 TAB PO ×2 (08:03→17:35)
[2022-03-03] MEDS: POLYSACCHARIDE IRON COMPLEX 150 MG CAPSULE PO ×2 (08:03→17:35)
[2022-03-03] MEDS: MULTIVIT/MIN/PREN/FOL AC/IRON TABLET 1 TAB PO (08:03)
[2022-03-03 08:10] VITALS: BP 135/83; PULSE 97; RESP 16; TEMP 36.6; O2SAT 99
[2022-03-03] MEDS: HYDROcodone/acetaminophen (*CRX) 5-325 MG TABLET 1 TAB PO (13:17)
[2022-03-03 16:30] VITALS: BP 136/90; PULSE 87
[2022-03-03 20:15] VITALS: BP 130/84; PULSE 107; RESP 16; TEMP 36.8; O2SAT 98
[2022-03-03] MEDS: ESCITALOPRAM OXALATE 10 MG TABLET PO (21:53)
[2022-03-03 23:10] VITALS: BP 137/97; PULSE 116; RESP 18; TEMP 37; O2SAT 97
[2022-03-04 05:30] VITALS: BP 134/90; PULSE 81; RESP 16; TEMP 37.4; O2SAT 98
[2022-03-04] MEDS: HYDROcodone/acetaminophen (*CRX) 5-325 MG TABLET 1 TAB PO (07:43)
[2022-03-04] MEDS: IBUPROFEN 600 MG TABLET PO (07:43)
[2022-03-04] MEDS: POLYSACCHARIDE IRON COMPLEX 150 MG CAPSULE PO (07:44)
[2022-03-04] MEDS: MULTIVIT/MIN/PREN/FOL AC/IRON TABLET 1 TAB PO (07:44)
[2022-03-04] MEDS: DOCUSATE SODIUM 100 MG CAPSULE PO (07:44)
--- NOTE | 2022-03-04 07:56 | PM.OBDSVD ---
DS: Admitting Diagnosis Discharge Date 03/04/2022 Admitting Diagnosis Elevated blood pressure Proteinuria Obesity Hypothyroidism Polyhydramnios Elevated 1 hour; normal 3 hour Depression/anxiety on lexapro DS: Discharge Diagnosis Discharge Diagnosis (1) Arrested active phase of labor: Code(s): O62.1 - Secondary uterine inertia Status: Acute (2) S/P section: Code(s): Z98.891 - History of uterine scar from previous surgery Status: Acute OB - DS: Summary OB Procedures : NST, PIH Mgmt and Ultrasound OB Procedures Intrapartum: low cervical, transverse OB Procedures: : None Peripartum Data Infant Delivery Method: Section Procedures: Procedures Operation Date: 03/01/22 21:45 Actual Procedure Side Surgeon p Section Sujata Carrillo MD complications: none Status at Discharge Functional status at discharge: independent ambulation Overall status at discharge: patient is back to baseline Time Spent with Patient Time attestation: Total time spent providing and/or coordinating discharge services: Exam Const: General: cooperative, comfortable and no acute distress Nutritional Appearance: obese Orientation/consciousness: patient oriented x3 Resp: Effort & Inspection: normal respiratory effort Auscultation: clear to auscultation bilaterally Cardio: Rate: regular rate GI: Inspection: non-distended GI Palp: No abdominal tenderness and Yes Soft to palpation Auscultation: normal bowel sounds : Other: fundus firm Skin: General skin exam: normal color Neuro: General: patient oriented x3 Extrem: General: normal to inspection Psych: Appearance: grossly normal Affect: normal affect Attitude: cooperative DS: Data Data Completed and Pending Pending studies at discharge: Pending at discharge 03/01/22 22:57 Surgical [PTH] Routine Discharge Plan Discharge Attending physician on discharge: Sujata Carrillo Discharging Clinician: Sujata Carrillo Anticipated Discharge Date/Time: 03/04/22 10:00 Patient Disposition: Home, Self-Care Activity: may shower and pelvic rest Diet: regular Discharge Instructions: No heavy lifting over 10 pounds for 6 weeks. Remove dressing on 03/07/22 Patient Instructions: Antibiotic Form Stand Alone Forms: General Discharge Information Follow-up/Referrals: Sujata Carrillo MD [Physician] - 4 Weeks Discharge Medications: New acetaminophen [Mapap (acetaminophen)] 325 mg Tablet 650 mg PO Q6H PRN (Reason: Mild Pain (1-3)) 10 Days Qty: 60 0RF docusate sodium 100 mg Capsule 100 mg PO BID 20 Days Qty: 40 0RF hydrocodone-acetaminophen 5-325 mg Tablet 1 tablet PO Q3H PRN (Reason: Moderate Pain (4-6)) 3 Days Qty: 24 0RF ibuprofen 600 mg Tablet 600 mg PO Q6H PRN (Reason: Cramping) 10 Days Qty: 40 0RF Continued escitalopram oxalate [Lexapro] 10 mg tablet 10 mg PO DAILY Qty: 90 3RF Rx Instructions: to be started after 14 days of lexapro 5mg Mynatal Plus 65 mg iron- 1 mg tablet 1 tablet PO DAILY ferrous sulfate 325 mg (65 mg iron) Tablet 325 mg PO 2XW famotidine [Pepcid] 20 mg tablet 20 mg PO BID Qty: 30 0RF Discontinued aspirin 81 mg tablet,chewable 162 mg PO DAILY Date of admission: 02/28/22 16:15 Primary Care Provider: [facility] Admitting Provider: Sujata Carrillo Attending physician on admission: Sujata Carrillo Condition: Stable
[2022-03-04 08:00] VITALS: PULSE 95; RESP 16; O2SAT 99
[2022-03-04] MEDS: FAMOTIDINE 20 MG TABLET PO (08:00)
[2022-03-04 08:40] VITALS: BP 149/87; PULSE 95; RESP 16; TEMP 37; O2SAT 99
--- NOTE | 2022-03-04 12:04 | PC.NURSE ---
Patient was given the opportunity to view the discharge video Mother & Baby Care, The First Two Weeks and to ask questions. Patient declined viewing the video and has been given the mother/baby guide for home reference.
--- NOTE | 2022-03-04 15:32 | PC.NURSE ---
[id number] Mother led the conversation with her experience and plan to feed her so far and her ability to attempt to latch optimally without discomfort, pump breast for milk production stimulation, and supplement infant at home. Reminded parents to use good handwashing technique to prevent infection. Mother is feeding appropriately for growth of and understands stimulating infant to eat if needed. has had appropriate feedings in the last 24 hours meets the outcomes for weight, output and jaundice at this time. Mother states she is confident to continue to feed her infant at home or when to call for assistance and denies any additional assistance or education at this time. Reinforced understanding of milk production, transition of milk, signs of adequate intake, prevention/relief of engorgement, responsive after visualizing feeding cues, the different methods of stimulating to breastfeed 2-3 hours after the start of the last feeding, community resources, medication information reviewed per [employer] and when to call a provider using the resource of the mom and baby guide/[facility] website. Mother voiced understanding of the education shared. Reported to the primary RN.
== END 2022-03-04 13:52 | disposition home or self-care (01) | DRG 787 ==
LOC: ANHLDR 03-01 13:53 → ANHOB2 03-02 01:54
PROVIDERS: Admitting Provider Obstetrics & Gynecology; PCP Nurse Practitioner Adult Health; Visit Provider Obstetrics & Gynecology
PROC: 10D00Z1 Extraction of Products of Conception, Low, Open Approach (ICD-10-PCS; CPT 59514; principal; 2022-03-01 21:45)
DX: O76 Abnormality in fetal heart rate and rhythm complicating labor and delivery (principal); O10.92 Unspecified pre-existing hypertension complicating childbirth; O62.1 Secondary uterine inertia; O99.284 Endocrine, nutritional and metabolic diseases complicating childbirth; O99.814 Abnormal glucose complicating childbirth; E03.9 Hypothyroidism, unspecified; O99.214 Obesity complicating childbirth; O40.3XX0 Polyhydramnios, third trimester, not applicable or unspecified; O99.344 Other mental disorders complicating childbirth; F32.A Depression, unspecified; F41.9 Anxiety disorder, unspecified; O69.81X0 Labor and delivery complicated by cord around neck, without compression, not applicable or unspecified; Z3A.37 37 weeks gestation of pregnancy; Z37.0 Single live birth; O11.4 Pre-existing hypertension with pre-eclampsia, complicating childbirth
CPT/HCPCS: 36415; 80053; 82948; 84550; 85025; 86592; 86703; 86850; 86900; 86901; 88307; A9270; G0432; J1885; J2274; J2405; J2795; J7030; J7120

== ENCOUNTER 2022-08-07 19:02 | Emergency (ER) | payer OTHER, SELFPAY ==
[2022-08-07 19:09] VITALS: BP 149/104; PULSE 134; RESP 16; TEMP 39; O2SAT 99
--- NOTE | 2022-08-07 19:22 | ED.URI ---
HPI - URI/Sore Throat General Chief Complaint: Upper Respiratory Infection Stated Complaint: sore throat/chills Time Seen by Provider: 08/07/22 19:24 Source: patient, RN notes reviewed and old records reviewed Mode of arrival: ambulatory Limitations: no limitations History of Present Illness HPI Narrative: 27-year-old female presents to the [facility] with complaints of a scratchy throat, chills, body aches for less than 12 hours. No treatment prior to arrival. Related Data Home Medications Medication Instructions Recorded Confirmed vitamins-iron fumarate 65 1 tablet PO DAILY 09/07/21 08/07/22 mg iron-folic acid 1 mg tablet (Mynatal Plus) Allergies Allergy/AdvReac Type Severity Reaction Status Date / Time No Known Allergies Allergy Verified 08/07/22 19:14 Review of Systems Review of Systems: All systems reviewed & are unremarkable except as noted in HPI and below Constitutional: Constitutional: Reports as per HPI, Reports chills, Reports fatigue and Reports fever(s) (Subjective, my thermometer is broken ) Eyes: Eyes: Reports no additional eye complaints ENT: Reports as per HPI Cardiovascular: Cardiovascular: Reports no additional cardiovascular complaints, Denies chest pain and Denies dyspnea Respiratory: Respiratory: Reports no additional respiratory complaints, Denies chest congestion, Denies cough and Denies dyspnea Gastrointestinal: Gastrointestinal: Reports no additional gastrointestinal complaints, Denies abdominal pain, Denies nausea and Denies vomiting Musculoskeletal: Musculoskeletal: Reports no additional musculoskeletal complaints Integumentary/Breasts: Skin/Breast: Reports system reviewed and no additional complaints, except as docu Neurologic: Reports system reviewed and no additional complaints, except as documented Psychiatric: Psychiatric: Reports no additional psychiatric complaints Allergic/Immunologic: Allergic/Immunologic: Reports no additional allergic/immunologic complaints [facility] Past Medical History Medical History Anxiety Blood glucose abnormal Hypothyroid Hypothyroidism Kidney stones Pre-eclampsia added to pre-existing hypertension Preeclampsia Suppression of menstruation Surgical History Surgical History H/O lithotripsy (~08/21/13) right kidney stones Family History Family History Grandparent Heart disease Lung cancer Sibling Gestational [-induced] hypertension without significant proteinuria, second trimester Gestational [-induced] hypertension without significant proteinuria, third trimester Hypothyroidism Mother Gestational [-induced] hypertension without significant proteinuria, third trimester Social History Social History Smoking status: Never smoker Second hand tobacco smoke exposure: No Alcohol intake: never Substance use: never Substance use type: does not use Additional living arrangements comments: spouse 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 There is no relevant family history pertinent to the patient complaint. Exam Const: General: cooperative, healthy appearing, comfortable, no acute distress, well developed, alert and well nourished Nutritional Appearance: well nourished and obese Orientation/consciousness: patient oriented x3 Limitations: no limitations HENMT: Head: normal to inspection Ears: hearing grossly normal bilaterally and external ears n
[2022-08-07] MEDS: ACETAMINOPHEN 500 MG TABLET 1000 MG PO (19:31)
== END 2022-08-07 19:35 | disposition home or self-care (01) ==
PROVIDERS: Emergency Provider Nurse Practitioner
DX: J11.1 Influenza due to unidentified influenza virus with other respiratory manifestations (principal); E03.9 Hypothyroidism, unspecified; F41.9 Anxiety disorder, unspecified
CPT/HCPCS: 99212; A9270; G0463

== ENCOUNTER 2022-09-05 08:38 | Emergency (ER) | payer OTHER, SELFPAY ==
[2022-09-05] VITALS (16 sets, daily range): BP systolic 119–149; BP diastolic 76–92; PULSE 86–98; RESP 18–20; TEMP 36.1; O2SAT 95–100
--- NOTE | ~2022-09-05 | CT_ITS ---
EXAMINATION: CT abdomen pelvis wo con DATE: 09/05/2022 12:06 INDICATION: Right flank pain TECHNIQUE: Computed tomography (CT) of the abdomen and pelvis was performed without intravenous contr ast. The dose-length product was 422.14 mGy-cm. Automated exposure control and iterative reconstructi on technique were employed. COMPARISON: None. FINDINGS: Lung bases are unremarkable. Heart size normal. No significant pleural or pericardial effus ion. There is focal scarring in the right kidney. There is a punctate calcification of the right righ t kidney which appears nonobstructing. Left kidney is unremarkable. No significant hydronephrosis. The liver, spleen, pancreas, and left kidney are unremarkable. Nonobstructive bowel gas pattern. No a bnormal pelvic masses or fluid collections. No ureteral stones or hydronephrosis. No free air or free fluid. No significant vascular abnormality. No lymphadenopathy. IMPRESSION: 1. No acute abdominal abnormality. Reviewed, dictated and finalized at location A. [facility]
[2022-09-05 09:08] LABS: Appearance Urine Clear (Clear); Basophils Absolute Auto 0.1 K/mm3 (0.0-0.1); Basophils Percent Auto 0.7 % (0.2-1.2); Bilirubin Urine Negative (Negative); Blood Urine Negative (Negative); Color Urine Yellow (Yellow); Eosinophils Absolute Auto 0.1 K/mm3 (0-0.3); Eosinophils Percent Auto 0.8 % (0-4.4); Glucose Urine UA Negative (Negative); Hematocrit 46.3 % (37.0-47.0); Hemoglobin 14.6 g/dL (12.0-15.0); Immature Granulocyte Absolute 0.03 K/mm3 (0.00-0.031); Immature Granulocyte Percent A 0.3 % (0-0.5); Ketones Urine Negative (Negative); Leukocyte Esterase Ur Negative LEU/UL (Negative); Lymphocytes Absolute Auto 2.18 K/mm3 (0.9-3.2); Lymphocytes Percent Auto 22.9 % (18.3-44.2); Mean Corpuscular HGB Conc 31.5 g/dl (32-36); Mean Corpuscular Hemoglobin 26.2 pg (26-34); Mean Corpuscular Volume 83.1 fl (80-100); Mean Platelet Volume 8.6 fl (7.4-10.4); Monocytes Absolute Auto 0.5 K/mm3 (0.1-0.6); Neutrophils Absolute Auto 6.7 K/mm3 (1.3-6.7); Neutrophils Percent Auto 70.3 % (45.5-73.1); Nitrate Urine Negative (Negative); Platelet Count Result 448 k/mm3 (150-375); Protein Urine Negative (Negative); Red Blood Count 5.57 M/mm3 (4.2-5.4); Red Cell Distribution Width 14.7 % (11.5-14.5); Specific Grav Ur 1.025 (1.001-1.035); Urobilinogen Urine 0.2 mg/dL (<2.0); White Blood Count 9.5 K/mm3 (4.5-10.0); pH Urine 5.5 (5.0-9.0)
[2022-09-05 09:16] LABS: Add Urine Microscopic? NO
[2022-09-05 09:17] LABS: Alanine Aminotransferase 26 U/L (6-35); Albumin Level 4.7 g/dL (3.5-5.1); Alkaline Phosphatase 122 U/L (38-126); Anion Gap 8 mmol/L (8-16); Aspartate Amino Transferase 33 U/L (14-36); Bilirubin,Total 0.3 mg/dL (0.2-1.3); Blood Urea Nitrogen 13 mg/dL (7-17); Calcium 9.2 mg/dL (8.4-10.2); Carbon Dioxide 25 mmol/L (22-30); Chloride 102 mmol/L (98-107); Estimated CRCL calculation 84 ml/min; Estimated Glomerular Filt Rate > 60; Glucose 90 mg/dL (65-110); Potassium 3.9 mmol/L (3.4-5.0); Sodium 135 mmol/L (137-145)
--- NOTE | 2022-09-05 09:18 | ED.ABDPAIN ---
HPI - Abdominal Pain General Chief Complaint: Abdominal Pain Stated Complaint: abd pain Time Seen by Provider: 09/05/22 09:06 Source: patient and RN notes reviewed Mode of arrival: ambulatory Limitations: no limitations History of Present Illness HPI narrative: This is a 27-year-old female that presents to the emergency department for right-sided mid back pain ongoing over the last week. Reports that pain is a dull ache, intermittently and is more sharp. It is worse with deep breathing. No recent injuries or trauma. She has been taking Joe aspirin with some relief initially, but was no longer relieving her pain which prompted her to be seen. Denies fever, chest pain, shortness of breath, vomiting, or dysuria. Related Data Allergies Allergy/AdvReac Type Severity Reaction Status Date / Time No Known Allergies Allergy Verified 09/05/22 09:06 Review of Systems Review of Systems: CONSTITUTIONAL: Denies fever CARDIOVASCULAR: Denies chest pain, or edema. RESPIRATORY: Denies cough or dyspnea. GASTROINTESTINAL: Denies abdominal pain, nausea, vomiting GENITOURINARY: Denies dysuria or hematuria. MUSCULOSKELETAL: Reports back pain, joint pain, and myalgia. All systems reviewed & are unremarkable except as noted in HPI and below PMFSH Past Medical History Medical History Anxiety Blood glucose abnormal Hypothyroid Hypothyroidism Kidney stones Pre-eclampsia added to pre-existing hypertension Preeclampsia Suppression of menstruation Surgical History Surgical History H/O lithotripsy (~08/21/13) right kidney stones Family History Family History Grandparent Heart disease Lung cancer Sibling Gestational [-induced] hypertension without significant proteinuria, second trimester Gestational [-induced] hypertension without significant proteinuria, third trimester Hypothyroidism Mother Gestational [-induced] hypertension without significant proteinuria, third trimester Social History Social History Smoking status: Never smoker Second hand tobacco smoke exposure: No Alcohol intake: never Substance use: never Substance use type: does not use Additional living arrangements comments: spouse 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 HEAD: Normocephalic, atraumatic. EYES: EOMI. ENT: Mucous membranes moist. Oropharynx without tonsillar hypertrophy exudate or other lesions. CHEST: Clear to auscultation. No respiratory distress. No wheezes rales or rhonchi HEART: Regular rate and rhythm. No murmur heard. Normal peripheral pulses. ABDOMEN: Soft, nontender, nondistended, normal active bowel sounds. No CVA tenderness EXTREMITIES: Normal range of motion. No edema. SKIN: Warm, dry, no rash. NEURO: No focal deficits. Alert and oriented x3. PSYCH: Normal mood and affect Course Course Emergency Course: Patient was updated on work-up. Resting comfortably. Agrees with plan of care. Vital Signs Vital signs: Vital Signs Temperature 97 F L 09/05/22 08:40 Pulse Rate 98 09/05/22 08:40 Respiratory Rate 18 09/05/22 08:40 Blood Pressure 119/76 09/05/22 08:40 Pulse Oximetry 100 09/05/22 08:40 Temperature 97 F L 09/05/22 08:40 Pulse Rate 91 09/05/22 11:01 Respiratory Rate 18 09/05/22 11:01 Blood Pressure 123/78 09/05/22 11:01 Pulse Oximetry 98 09/05/22 11:01 MDM - Abdominal Pain MDM Narrative Medical decision making narrative: Patient presents emergency departm
[2022-09-05] MEDS: diazePAM INJ (*CRX) 10 MG/2 ML SYRINGE 5 MG IV PUSH (09:44)
[2022-09-05 10:36] LABS: D Dimer 0.42 ug/mL (<0.48)
== END 2022-09-05 13:25 | disposition home or self-care (01) ==
PROVIDERS: Emergency Medicine; Physician Assistant; Emergency Provider Emergency Medicine
DX: M54.6 Pain in thoracic spine (principal); E03.9 Hypothyroidism, unspecified; F41.9 Anxiety disorder, unspecified; Z87.442 Personal history of urinary calculi
CPT/HCPCS: 36415; 74176; 80053; 81003; 81025; 85025; 85380; 96374; 96375; 99284; J0131; J3360

== ENCOUNTER 2023-02-24 09:48 | Outpatient (CLI) | payer OTHER, SELFPAY ==
[2023-02-24 11:26] LABS: Basophils Percent Auto 0.5 % (0.2-1.2); Eosinophils Absolute Auto 0.1 K/mm3 (0-0.3); Eosinophils Percent Auto 0.6 % (0-4.4); Hematocrit 41.1 % (37.0-47.0); Hemoglobin 13.2 g/dL (12.0-15.0); Immature Granulocyte Absolute 0.03 K/mm3 (0.00-0.031); Immature Granulocyte Percent A 0.4 % (0-0.5); Lymphocytes Absolute Auto 2.08 K/mm3 (0.9-3.2); Lymphocytes Percent Auto 24.7 % (18.3-44.2); Mean Corpuscular HGB Conc 32.1 g/dl (32-36); Mean Platelet Volume 8.8 fl (7.4-10.4); Monocytes Absolute Auto 0.5 K/mm3 (0.1-0.6); Monocytes Percent Auto 5.4 % (2.6-8.5); Neutrophils Absolute Auto 5.8 K/mm3 (1.3-6.7); Neutrophils Percent Auto 68.4 % (45.5-73.1); Platelet Count Result 350 k/mm3 (150-375); Red Blood Count 4.89 M/mm3 (4.2-5.4); Red Cell Distribution Width 15.1 % (11.5-14.5); White Blood Count 8.4 K/mm3 (4.5-10.0)
[2023-02-24 11:40] LABS: Alanine Aminotransferase 20 U/L (6-35); Albumin Level 4.4 g/dL (3.5-5.1); Alkaline Phosphatase 79 U/L (38-126); Anion Gap 9 mmol/L (8-16); Aspartate Amino Transferase 21 U/L (14-36); Bilirubin,Total 0.4 mg/dL (0.2-1.3); Blood Urea Nitrogen 7 mg/dL (7-17); Calcium 9.3 mg/dL (8.4-10.2); Carbon Dioxide 22 mmol/L (22-30); Chloride 103 mmol/L (98-107); Estimated Glomerular Filt Rate > 60; Glucose 93 mg/dL (65-110); Glucose 1 Hour PP 50gm Dose 93 mg/dL; Potassium 3.4 mmol/L (3.4-5.0); Sodium 134 mmol/L (137-145)
[2023-02-24 12:17] LABS: HIV 1/2 Ab P24 Ag Result Negative (Negative)
[2023-02-24 12:27] LABS: Hepatitis B Surface Antigen Negative (Negative)
[2023-02-24 16:39] LABS: Rapid Plasma Reagin Non-Reactive (NonReactive)
[2023-03-01 17:51] LABS: CMV IgG Antibody <0.60 U/mL (<0.60)
== END 2023-02-24 09:49 | disposition home or self-care (01) ==
PROVIDERS: Visit Provider Obstetrics & Gynecology
DX: N94.89 Other specified conditions associated with female genital organs and menstrual cycle (principal); O11.9 Pre-existing hypertension with pre-eclampsia, unspecified trimester; E66.9 Obesity, unspecified; Z3A.00 Weeks of gestation of pregnancy not specified
CPT/HCPCS: 36415; 80053; 82947; 84702; 85025; 86592; 86644; 86703; 86747; 86762; 86787; 86850; 86900; 86901; 87086; 87088; 87340; G0432

== ENCOUNTER 2023-02-26 12:30 | Outpatient (CLI) | payer OTHER, SELFPAY ==
[2023-02-26 13:05] VITALS: BMI 40.8
[2023-02-26 13:57] LABS: Collection Time Urine 24 HOURS; Patient Weight 208 Lbs
[2023-02-26 13:58] LABS: Total Volume 24 Hour Urine 2000 ml
[2023-02-26 14:07] LABS: Creatinine Clearance Urine 175.3 ml/min (75-125); Creatinine Urine 82.8 mg/dL; Total Protein Urine 24 Hr 240 mg/24hr (28-141); Total Protein Urine Random 12 mg/dL
== END 2023-02-26 12:31 | disposition home or self-care (01) ==
LOC: ANHOBOP 12:41
PROVIDERS: PCP Nurse Practitioner Family; Visit Provider Obstetrics & Gynecology
DX: Z34.90 Encounter for supervision of normal pregnancy, unspecified, unspecified trimester (principal); Z3A.00 Weeks of gestation of pregnancy not specified
CPT/HCPCS: 81050; 82575; 84156

== ENCOUNTER 2023-03-21 08:55 | Outpatient (CLI) | payer OTHER, SELFPAY | END 2023-03-21 08:56 | disposition home or self-care (01) | PROVIDERS: PCP Nurse Practitioner Family; Visit Provider Obstetrics & Gynecology | DX: Z34.90 Encounter for supervision of normal pregnancy, unspecified, unspecified trimester (principal); Z3A.00 Weeks of gestation of pregnancy not specified; E03.9 Hypothyroidism, unspecified | CPT/HCPCS: 36415; 84443 ==

== ENCOUNTER 2023-06-21 09:52 | Emergency (ER) | payer OTHER, SELFPAY ==
[2023-06-21 09:53] VITALS: BP 151/90; PULSE 89; RESP 16; TEMP 36.6; O2SAT 100
[2023-06-21 10:00] VITALS: BP 125/89; PULSE 100; RESP 24; O2SAT 100
--- NOTE | 2023-06-21 11:00 | ED.EPISTAXIS ---
HPI - Epistaxis General Chief complaint: Epistaxis Stated complaint: NOSEBLEED X2. 27WKS PREG Time Seen by Provider: 06/21/23 10:12 History of Present Illness HPI Narrative: 28-year-old female with a history of preeclampsia who is currently 27 weeks , LMP in November 2022 and estimated due date of 09/17/2023 reports for evaluation for 2 episodes of epistaxis that occurred earlier this morning. Patient states she had epistaxis out of her left nare lasting approximately 30 minutes at resolve spontaneously. She reports she called her OBs office, Dr. Carrillo, and was advised to come to the ED if she began developing epistaxis again. Then 1 hour later she began bleeding out of her left nare that and then transition to her right nare for 20 minutes, then again resolved spontaneously. She states she has not had any bleeding since 924 this morning. Patient states she is currently experiencing pressure in her left sinus and nare and some lightheadedness. She reports normal windedness . She denies lower extremity edema. Her thus far has been uncomplicated. She is . Her first she was diagnosed with preeclampsia and has been monitoring her blood pressures at home daily. She states her normal blood pressures are between 110-120/60s-80s, however she did have an elevated reading 3 days ago of 137/90. She has an appointment with her OB in 6 days. She denies abdominal pain, vaginal bleeding, dysuria or hematuria, urinary frequency or urgency, vision changes, altered mental status, lower extremity edema, syncope, seizures, headache. She takes 2 81 mg aspirins at night for prior preeclampsia. Related Data Home Medications Medication Instructions Recorded Confirmed sertraline 25 mg tablet 25 mg PO DAILY 02/06/23 05/30/23 aspirin 81 mg tablet,delayed 162 mg PO DAILY 04/04/23 05/30/23 release (Adult Low Dose Aspirin) Allergies Allergy/AdvReac Type Severity Reaction Status Date / Time No Known Allergies Allergy Verified 06/21/23 10:03 Review of Systems Review of Systems: CONSTITUTIONAL: Denies fever, chills EYES: Denies visual changes, redness, or discharge. ENT: See HPI CARDIOVASCULAR: Denies chest pain, palpitations, or edema. RESPIRATORY: Denies cough or dyspnea. GASTROINTESTINAL: Denies abdominal pain, nausea, vomiting, or diarrhea. GENITOURINARY: Denies dysuria and hematuria SKIN: Denies rash or itching. MUSCULOSKELETAL: Denies back pain, joint pain, or myalgia. NEUROLOGIC: See HPI PSYCHIATRIC: Denies anxiety or depression. [facility] Past Medical History Medical History Anxiety Blood glucose abnormal Hypothyroid Hypothyroidism Kidney stones Pre-eclampsia added to pre-existing hypertension Preeclampsia Suppression of menstruation Surgical History Surgical History H/O lithotripsy (~08/21/13) right kidney stones Family History Family History Grandparent Heart disease Lung cancer Sibling Gestational [-induced] hypertension without significant proteinuria, second trimester Gestational [-induced] hypertension without significant proteinuria, third trimester Hypothyroidism Mother Gestational [-induced] hypertension without significant proteinuria, third trimester Social History Social History Smoking status: Never smoker Second hand tobacco smoke exposure: No Alcohol intake: never Substance use: never Substance use type: does not use Lack of Transportation: No Lack of Food: Never True Current Housing: I Have Housing Concerned About Future Housing: Decline to Answer Difficulty Paying Gas/Electric Bills: Decline to Answer Difficulty Paying for Meds: Decline to Answer Currently Unemployed: Decline to
[2023-06-21 11:33] LABS: Basophils Percent Auto 0.3 % (0.2-1.2); Eosinophils Percent Auto 0.3 % (0-4.4); Hematocrit 35.1 % (37.0-47.0); Hemoglobin 11.5 g/dL (12.0-15.0); Immature Granulocyte Absolute 0.02 K/mm3 (0.00-0.031); Immature Granulocyte Percent A 0.2 % (0-0.5); Lymphocytes Absolute Auto 2.06 K/mm3 (0.9-3.2); Lymphocytes Percent Auto 22.5 % (18.3-44.2); Mean Corpuscular HGB Conc 32.8 g/dl (32-36); Mean Corpuscular Volume 85.6 fl (80-100); Mean Platelet Volume 8.7 fl (7.4-10.4); Monocytes Absolute Auto 0.6 K/mm3 (0.1-0.6); Monocytes Percent Auto 6.6 % (2.6-8.5); Neutrophils Absolute Auto 6.4 K/mm3 (1.3-6.7); Neutrophils Percent Auto 70.1 % (45.5-73.1); Platelet Count Result 301 k/mm3 (150-375); Red Cell Distribution Width 13.9 % (11.5-14.5); White Blood Count 9.2 K/mm3 (4.5-10.0)
[2023-06-21 11:43] LABS: Alanine Aminotransferase 14 U/L (6-35); Albumin Level 3.6 g/dL (3.5-5.1); Alkaline Phosphatase 90 U/L (38-126); Anion Gap 4 mmol/L (8-16); Aspartate Amino Transferase 19 U/L (14-36); Bilirubin,Total 0.4 mg/dL (0.2-1.3); Blood Urea Nitrogen 7 mg/dL (7-17); Calcium 9.2 mg/dL (8.4-10.2); Carbon Dioxide 24 mmol/L (22-30); Chloride 106 mmol/L (98-107); Estimated CRCL calculation 141 ml/min; Estimated Glomerular Filt Rate > 60; Glucose 76 mg/dL (65-110); Magnesium 1.9 mg/dL (1.6-2.3); Sodium 134 mmol/L (137-145)
[2023-06-21] MEDS: SODIUM CHLORIDE 0.9% IV 1,000 ML 999 ML IV CONT (12:00)
--- NOTE | 2023-06-21 12:18 | ECG_ITS ---
Measurements Intervals [place] Rate: 76 P: 28 NC: 150 QRS: 9 QRSD: 104 T: 17 QT: 362 QTc: 408 Interpretive Statements SINUS RHYTHM WITH SINUS ARRHYTHMIA NORMAL ECG NO PREVIOUS ECG AVAILABLE FOR COMPARISON Electronically Signed On 06-21-2023 13:07:35 CDT by Marco Antonio Jang D.O.
[2023-06-21 13:25] LABS: Appearance Urine Clear (Clear); Bacteria Urine None Seen /hpf; Bilirubin Urine Negative (Negative); Blood Urine Negative (Negative); Color Urine Yellow (Yellow); Glucose Urine UA Negative (Negative); Ketones Urine Negative (Negative); Leukocyte Esterase Ur 1+ LEU/UL (Negative); Need Manual Microscopic Reviewed; Nitrate Urine Negative (Negative); Non Pathogenic Casts 0-2; Protein Urine Negative (Negative); RBC Urine 0-2 /hpf (0-2); Specific Grav Ur 1.013 (1.001-1.035); Squamous Epithelial Cell Urine Few /hpf (Few); Urobilinogen Urine 0.2 mg/dL (<2.0); WBC Urine 0-5 /hpf; pH Urine 7.5 (5.0-9.0)
[2023-06-21 13:30] LABS: Add Urine Microscopic? YES
[2023-06-21 13:58] VITALS: BP 137/86; PULSE 86; RESP 16; O2SAT 98
== END 2023-06-21 14:00 | disposition home or self-care (01) ==
PROVIDERS: Emergency Provider Physician Assistant; PCP Nurse Practitioner Family
DX: O26.892 Other specified pregnancy related conditions, second trimester (principal); R04.0 Epistaxis; O99.282 Endocrine, nutritional and metabolic diseases complicating pregnancy, second trimester; E03.9 Hypothyroidism, unspecified; O99.342 Other mental disorders complicating pregnancy, second trimester; F41.9 Anxiety disorder, unspecified; Z87.442 Personal history of urinary calculi; Z79.82 Long term (current) use of aspirin; Z3A.27 27 weeks gestation of pregnancy
CPT/HCPCS: 36415; 80053; 81001; 83735; 85025; 93005; 96360; 99283; J7030

== ENCOUNTER 2023-06-23 08:56 | Outpatient (CLI) | payer OTHER, SELFPAY ==
[2023-06-23 10:53] LABS: Basophils Percent Auto 0.4 % (0.2-1.2); Eosinophils Percent Auto 0.5 % (0-4.4); Hematocrit 37.8 % (37.0-47.0); Hemoglobin 12.2 g/dL (12.0-15.0); Immature Granulocyte Absolute 0.03 K/mm3 (0.00-0.031); Immature Granulocyte Percent A 0.4 % (0-0.5); Lymphocytes Absolute Auto 1.94 K/mm3 (0.9-3.2); Lymphocytes Percent Auto 23.1 % (18.3-44.2); Mean Corpuscular HGB Conc 32.3 g/dl (32-36); Mean Corpuscular Hemoglobin 27.9 pg (26-34); Mean Corpuscular Volume 86.5 fl (80-100); Mean Platelet Volume 8.9 fl (7.4-10.4); Monocytes Absolute Auto 0.4 K/mm3 (0.1-0.6); Neutrophils Absolute Auto 5.9 K/mm3 (1.3-6.7); Neutrophils Percent Auto 70.6 % (45.5-73.1); Platelet Count Result 319 k/mm3 (150-375); Red Blood Count 4.37 M/mm3 (4.2-5.4); Red Cell Distribution Width 13.9 % (11.5-14.5); White Blood Count 8.4 K/mm3 (4.5-10.0)
[2023-06-23 11:06] LABS: Total Protein Urine Random 13 mg/dL
[2023-06-23 11:11] LABS: Alanine Aminotransferase 15 U/L (6-35); Alkaline Phosphatase 101 U/L (38-126); Anion Gap 7 mmol/L (8-16); Aspartate Amino Transferase 17 U/L (14-36); Bilirubin,Total 0.4 mg/dL (0.2-1.3); Blood Urea Nitrogen 4 mg/dL (7-17); Calcium 9.5 mg/dL (8.4-10.2); Carbon Dioxide 25 mmol/L (22-30); Chloride 104 mmol/L (98-107); Estimated Glomerular Filt Rate > 60; Glucose 100 mg/dL (65-110); Glucose 1 Hour PP 50gm Dose 100 mg/dL; Potassium 3.6 mmol/L (3.4-5.0); Sodium 136 mmol/L (137-145)
[2023-06-23 11:44] LABS: HIV 1/2 Ab P24 Ag Result Negative (Negative)
== END 2023-06-23 08:57 | disposition home or self-care (01) ==
PROVIDERS: PCP Nurse Practitioner Family; Visit Provider Obstetrics & Gynecology
DX: Z34.90 Encounter for supervision of normal pregnancy, unspecified, unspecified trimester (principal); E03.9 Hypothyroidism, unspecified; Z3A.00 Weeks of gestation of pregnancy not specified
CPT/HCPCS: 36415; 80053; 81050; 82570; 82947; 84156; 84443; 85025; 86703; G0432

== ENCOUNTER 2023-07-16 11:02 | Outpatient (CLI) | payer OTHER, SELFPAY ==
[2023-07-16 11:30] VITALS: BP 121/87; PULSE 103
[2023-07-16 11:36] LABS: Basophils Percent Auto 0.3 % (0.2-1.2); Eosinophils Percent Auto 0.2 % (0-4.4); Hematocrit 35.7 % (37.0-47.0); Hemoglobin 11.9 g/dL (12.0-15.0); Immature Granulocyte Absolute 0.04 K/mm3 (0.00-0.031); Immature Granulocyte Percent A 0.4 % (0-0.5); Lymphocytes Absolute Auto 1.89 K/mm3 (0.9-3.2); Lymphocytes Percent Auto 16.8 % (18.3-44.2); Mean Corpuscular HGB Conc 33.3 g/dl (32-36); Mean Corpuscular Hemoglobin 28.1 pg (26-34); Mean Corpuscular Volume 84.2 fl (80-100); Mean Platelet Volume 8.4 fl (7.4-10.4); Monocytes Absolute Auto 0.5 K/mm3 (0.1-0.6); Monocytes Percent Auto 4.4 % (2.6-8.5); Neutrophils Absolute Auto 8.8 K/mm3 (1.3-6.7); Neutrophils Percent Auto 77.9 % (45.5-73.1); Platelet Count Result 355 k/mm3 (150-375); Red Blood Count 4.24 M/mm3 (4.2-5.4); Red Cell Distribution Width 13.5 % (11.5-14.5); White Blood Count 11.2 K/mm3 (4.5-10.0)
[2023-07-16 11:43] LABS: Appearance Urine Clear (Clear); Bacteria Urine None Seen /hpf; Bilirubin Urine Negative (Negative); Blood Urine Negative (Negative); Color Urine Yellow (Yellow); Glucose Urine UA Negative (Negative); Ketones Urine Negative (Negative); Leukocyte Esterase Ur Trace LEU/UL (NEGATIVE); Nitrate Urine Negative (Negative); Non Pathogenic Casts 0-2; Protein Urine Negative (Negative); RBC Urine 0-2 /hpf (0-2); Specific Grav Ur 1.016 (1.001-1.035); Squamous Epithelial Cell Urine Moderate /hpf (Few); Urobilinogen Urine 0.2 mg/dL (<2.0); WBC Urine 0-5 /hpf (0-3); pH Urine 6.5 (5.0-9.0)
[2023-07-16 11:44] LABS: Add Urine Microscopic? YES; Creatinine Urine 112.2 mg/dL; Total Protein Urine Random 15 mg/dL; Ur Ttl Prot Creatinine Ratio 0.13 mg/mg (0-0.20)
[2023-07-16 11:45] VITALS: BP 130/75; PULSE 89
[2023-07-16 11:46] LABS: Alanine Aminotransferase 13 U/L (6-35); Albumin Level 3.8 g/dL (3.5-5.1); Alkaline Phosphatase 121 U/L (38-126); Anion Gap 9 mmol/L (8-16); Aspartate Amino Transferase 17 U/L (14-36); Bilirubin,Total 0.4 mg/dL (0.2-1.3); Blood Urea Nitrogen 6 mg/dL (7-17); Calcium 9.3 mg/dL (8.4-10.2); Carbon Dioxide 19 mmol/L (22-30); Chloride 107 mmol/L (98-107); Estimated Glomerular Filt Rate > 60; Glucose 83 mg/dL (65-110); Potassium 4.1 mmol/L (3.4-5.0); Sodium 135 mmol/L (137-145); Uric Acid 4.2 mg/dL (2.5-7.5)
[2023-07-16 12:00] VITALS: BP 127/72; PULSE 92
[2023-07-16 12:05] VITALS: BP 121/87
--- NOTE | 2023-07-16 12:15 | PC.NURSE ---
1215--Reported labs, NST and BP's to Dr Brooks. All WNL. DC orders given.
== END 2023-07-16 12:15 | disposition home or self-care (01) ==
LOC: ANHOBOP 11:07 → ANHOBPP 11:08
PROVIDERS: PCP Nurse Practitioner Family; Visit Provider Obstetrics & Gynecology
DX: O13.9 Gestational [pregnancy-induced] hypertension without significant proteinuria, unspecified trimester (principal); Z3A.00 Weeks of gestation of pregnancy not specified
CPT/HCPCS: 36415; 59025; 80053; 81001; 82570; 84156; 84550; 85025; 87086; 87088; 87147; 99199

== ENCOUNTER 2023-08-08 11:14 | Outpatient (CLI) | payer OTHER, SELFPAY ==
--- NOTE | ~2023-08-08 | US_ITS ---
EXAMINATION: US OB BPP wo non-stress DATE: 08/08/2023 13:11 INDICATION: -induced hypertension, third trimester TECHNIQUE: Real-time pelvic ultrasound was performed. The interpreting radiologist was not present fo r the study. COMPARISON: None. FINDINGS: There is a single living fetus in vertex presentation. The placenta is anterior. heart rate is 136 beats per minute (bpm). Biophysical profile performed by the technologist: breathing (30 sec sustained breathing in 30 minutes): 0 out of 2 movement (3 gross body movements in 30 minutes): 2 out of 2 tone (one episode of dguuoup-wwortnojj-qrlohpv limb movement): 2 out of 2 Amniotic fluid pocket (2 cm): 2 out of 2 Total score: 6 out of 8 IMPRESSION: 1. Single living fetus in vertex presentation. 2. Biophysical profile 6 out of 8. Reviewed, dictated and finalized at location L. S PROMOTION COORDINATOR
[2023-08-08 11:56] LABS: Basophils Percent Auto 0.5 % (0.2-1.2); Immature Granulocyte Absolute 0.03 K/mm3 (0.00-0.031); Immature Platelet Fraction Pct 1.7 % (0.9-11.2)
[2023-08-08 11:57] LABS: Appearance Urine Clear (Clear); Bacteria Urine None Seen /hpf; Bilirubin Urine Negative (Negative); Blood Urine Negative (Negative); Color Urine Yellow (Yellow); Glucose Urine UA Negative (Negative); Ketones Urine Negative (Negative); Leukocyte Esterase Ur Trace LEU/UL (NEGATIVE); Nitrate Urine Negative (Negative); Non Pathogenic Casts 0-2; Protein Urine Negative (Negative); RBC Urine 0-2 /hpf (0-2); Specific Grav Ur 1.012 (1.001-1.035); Squamous Epithelial Cell Urine Moderate /hpf (Few); Urobilinogen Urine 0.2 mg/dL (<2.0); WBC Urine 0-5 /hpf (0-3); pH Urine 7.5 (5.0-9.0)
[2023-08-08 12:00] LABS: Creatinine Urine 72.8 mg/dL; Total Protein Urine Random 14 mg/dL; Ur Ttl Prot Creatinine Ratio 0.19 mg/mg (0-0.20)
[2023-08-08 12:02] LABS: Alanine Aminotransferase 11 U/L (6-35); Albumin Level 3.4 g/dL (3.5-5.1); Alkaline Phosphatase 140 U/L (38-126); Anion Gap 5 mmol/L (8-16); Aspartate Amino Transferase 21 U/L (14-36); Bilirubin,Total 0.4 mg/dL (0.2-1.3); Blood Urea Nitrogen 4 mg/dL (7-17); Calcium 8.8 mg/dL (8.4-10.2); Carbon Dioxide 20 mmol/L (22-30); Chloride 109 mmol/L (98-107); Estimated Glomerular Filt Rate > 60; Glucose 84 mg/dL (65-110); Potassium 4.1 mmol/L (3.4-5.0); Sodium 134 mmol/L (137-145); Uric Acid 4.4 mg/dL (2.5-7.5)
[2023-08-08 12:04] LABS: Add Urine Microscopic? YES
[2023-08-08 13:56] LABS: White Blood Count 10.6 K/mm3 (4.5-10.0)
[2023-08-08 13:57] LABS: Red Blood Count 4.11 M/mm3 (4.2-5.4)
[2023-08-08 13:58] LABS: Mean Corpuscular HGB Conc 32.3 g/dl (32-36)
[2023-08-08 13:59] LABS: Mean Platelet Volume 8.8 fl (7.4-10.4); Platelet Count Result 326 k/mm3 (150-375)
[2023-08-08 14:01] LABS: Immature Granulocyte Percent A 0.3 % (0-0.5); Neutrophils Percent Auto 69.2 % (45.5-73.1)
[2023-08-08 14:02] LABS: Eosinophils Percent Auto 0.5 % (0-4.4); Monocytes Percent Auto 6.7 % (2.6-8.5)
[2023-08-08 14:03] LABS: Lymphocytes Absolute Auto 2.41 K/mm3 (0.9-3.2); Neutrophils Absolute Auto 7.3 K/mm3 (1.3-6.7)
[2023-08-08 14:04] LABS: Hematocrit 34.1 % (37.0-47.0); Monocytes Absolute Auto 0.7 K/mm3 (0.1-0.6)
[2023-08-08 14:06] LABS: Lymphocytes Percent Auto 22.8 % (18.3-44.2)
[2023-08-08 14:22] LABS: Platelet Estimate Adequate (Adequate); Schistocytes None Seen (NORMAL)
[2023-08-08 14:47] VITALS: BP 125/81
== END 2023-08-08 14:50 | disposition home or self-care (01) ==
PROVIDERS: PCP Nurse Practitioner Family; Visit Provider Obstetrics & Gynecology
DX: O13.9 Gestational [pregnancy-induced] hypertension without significant proteinuria, unspecified trimester (principal); Z3A.00 Weeks of gestation of pregnancy not specified
CPT/HCPCS: 36415; 59025; 76819; 80053; 81001; 82570; 84156; 84550; 85025; 85055; 87086; 87088

== ENCOUNTER 2023-08-09 14:55 | Outpatient (CLI) | payer OTHER, SELFPAY ==
[2023-08-09 15:09] VITALS: BMI 44.1
[2023-08-09 15:35] LABS: Collection Time Urine 24 HOURS; Total Volume 24 Hour Urine 1900 ml
[2023-08-09 15:35] LABS: Total Volume 24 Hour Urine 1900 ml
[2023-08-09 16:13] LABS: Total Protein Urine 24 Hr 361 mg/24hr (28-141); Total Protein Urine Random 19 mg/dL
[2023-08-09 16:14] LABS: Creatinine Clearance Urine 151.8 ml/min (75-125); Creatinine Urine 78.2 mg/dL; Patient Weight 226 Lbs
== END 2023-08-09 14:56 | disposition home or self-care (01) ==
LOC: ANHOBOP 15:02
PROVIDERS: PCP Nurse Practitioner Family; Visit Provider Obstetrics & Gynecology
DX: Z34.90 Encounter for supervision of normal pregnancy, unspecified, unspecified trimester (principal); Z3A.00 Weeks of gestation of pregnancy not specified
CPT/HCPCS: 81050; 82575; 84156

== ENCOUNTER 2023-08-19 10:30 | Outpatient (CLI) | payer OTHER, SELFPAY ==
--- NOTE | 2023-08-19 11:20 | PC.NURSE ---
Dr Carrillo on unit, BP revieewed, informed of normal reflexes and no swelling, informed of slight visual changes. OK to dc home with precautions, instruct patient that she is on modified bedrest and needs help with her other childrens.
== END 2023-08-19 10:31 | disposition home or self-care (01) ==
PROVIDERS: PCP Nurse Practitioner Family; Visit Provider Obstetrics & Gynecology
DX: O13.9 Gestational [pregnancy-induced] hypertension without significant proteinuria, unspecified trimester (principal); Z3A.00 Weeks of gestation of pregnancy not specified
CPT/HCPCS: 59025

== ENCOUNTER 2023-08-26 10:54 | Outpatient (RCR) | payer OTHER, SELFPAY ==
[2023-08-11 10:12] LABS: Basophils Percent Auto 0.4 % (0.2-1.2); Eosinophils Percent Auto 0.5 % (0-4.4); Hematocrit 33.2 % (37.0-47.0); Hemoglobin 10.7 g/dL (12.0-15.0); Immature Granulocyte Absolute 0.03 K/mm3 (0.00-0.031); Immature Granulocyte Percent A 0.4 % (0-0.5); Lymphocytes Absolute Auto 1.83 K/mm3 (0.9-3.2); Lymphocytes Percent Auto 22.6 % (18.3-44.2); Mean Corpuscular HGB Conc 32.2 g/dl (32-36); Mean Corpuscular Hemoglobin 26.5 pg (26-34); Mean Corpuscular Volume 82.2 fl (80-100); Mean Platelet Volume 8.6 fl (7.4-10.4); Monocytes Absolute Auto 0.5 K/mm3 (0.1-0.6); Monocytes Percent Auto 6.2 % (2.6-8.5); Neutrophils Absolute Auto 5.7 K/mm3 (1.3-6.7); Neutrophils Percent Auto 69.9 % (45.5-73.1); Platelet Count Result 312 k/mm3 (150-375); Red Blood Count 4.04 M/mm3 (4.2-5.4); Red Cell Distribution Width 12.9 % (11.5-14.5); White Blood Count 8.1 K/mm3 (4.5-10.0)
[2023-08-11 10:18] LABS: Appearance Urine Cloudy (Clear); Bacteria Urine Rare /hpf; Bilirubin Urine Negative (Negative); Blood Urine Negative (Negative); Color Urine Yellow (Yellow); Glucose Urine UA Negative (Negative); Ketones Urine Negative (Negative); Leukocyte Esterase Ur 2+ LEU/UL (NEGATIVE); Nitrate Urine Negative (Negative); Non Pathogenic Casts 0-2; Protein Urine Negative (Negative); RBC Urine 0-2 /hpf (0-2); Specific Grav Ur 1.011 (1.001-1.035); Squamous Epithelial Cell Urine Moderate /hpf (Few); Urobilinogen Urine 0.2 mg/dL (<2.0)
[2023-08-11 10:26] LABS: Alanine Aminotransferase 13 U/L (6-35); Albumin Level 3.4 g/dL (3.5-5.1); Alkaline Phosphatase 159 U/L (38-126); Anion Gap 10 mmol/L (8-16); Aspartate Amino Transferase 18 U/L (14-36); Bilirubin,Total 0.4 mg/dL (0.2-1.3); Blood Urea Nitrogen 5 mg/dL (7-17); Calcium 8.9 mg/dL (8.4-10.2); Carbon Dioxide 18 mmol/L (22-30); Chloride 107 mmol/L (98-107); Estimated Glomerular Filt Rate > 60; Glucose 86 mg/dL (65-110); Potassium 3.5 mmol/L (3.4-5.0); Sodium 135 mmol/L (137-145)
[2023-08-11 10:34] LABS: Add Urine Microscopic? YES
[2023-08-11 10:36] LABS: Creatinine Urine 104.6 mg/dL; Total Protein Urine Random 19 mg/dL; Ur Ttl Prot Creatinine Ratio 0.18 mg/mg (0-0.20)
[2023-08-11 10:49] VITALS: BP 132/93; PULSE 90
[2023-08-15 11:17] VITALS: BP 122/82; PULSE 91
[2023-08-18 12:58] LABS: Basophils Percent Auto 0.5 % (0.2-1.2); Eosinophils Absolute Auto 0.1 K/mm3 (0-0.3); Eosinophils Percent Auto 0.6 % (0-4.4); Hematocrit 33.6 % (37.0-47.0); Hemoglobin 10.9 g/dL (12.0-15.0); Immature Granulocyte Absolute 0.03 K/mm3 (0.00-0.031); Immature Granulocyte Percent A 0.4 % (0-0.5); Lymphocytes Absolute Auto 1.05 K/mm3 (0.9-3.2); Lymphocytes Percent Auto 12.9 % (18.3-44.2); Mean Corpuscular HGB Conc 32.4 g/dl (32-36); Mean Corpuscular Hemoglobin 26.7 pg (26-34); Mean Corpuscular Volume 82.4 fl (80-100); Mean Platelet Volume 8.7 fl (7.4-10.4); Monocytes Absolute Auto 0.6 K/mm3 (0.1-0.6); Monocytes Percent Auto 7.4 % (2.6-8.5); Neutrophils Absolute Auto 6.3 K/mm3 (1.3-6.7); Neutrophils Percent Auto 78.2 % (45.5-73.1); Platelet Count Result 307 k/mm3 (150-375); Red Blood Count 4.08 M/mm3 (4.2-5.4); Red Cell Distribution Width 13.1 % (11.5-14.5); White Blood Count 8.1 K/mm3 (4.5-10.0)
[2023-08-18 13:14] LABS: Alanine Aminotransferase 13 U/L (6-35); Albumin Level 3.4 g/dL (3.5-5.1); Alkaline Phosphatase 169 U/L (38-126); Anion Gap 8 mmol/L (8-16); Aspartate Amino Transferase 19 U/L (14-36); Bilirubin,Total 0.3 mg/dL (0.2-1.3); Blood Urea Nitrogen 4 mg/dL (7-17); Calcium 8.9 mg/dL (8.4-10.2); Carbon Dioxide 19 mmol/L (22-30); Chloride 107 mmol/L (98-107); Estimated Glomerular Filt Rate > 60; Glucose 105 mg/dL (65-110); Potassium 3.6 mmol/L (3.4-5.0); Sodium 134 mmol/L (137-145); Uric Acid 4.6 mg/dL (2.5-7.5)
[2023-08-18 13:28] LABS: Total Protein Urine Random 22 mg/dL; Ur Ttl Prot Creatinine Ratio 0.25 mg/mg (0-0.20)
[2023-08-18 13:51] VITALS: BP 125/85; PULSE 91
[2023-08-22 09:57] VITALS: BP 129/96; PULSE 97
--- NOTE | ~2023-08-26 | US_ITS ---
EXAMINATION: US OB BPP wo non-stress DATE: 08/11/2023 10:44 INDICATION: -induced hypertension, third trimester TECHNIQUE: Real-time pelvic ultrasound was performed. The interpreting radiologist was not present fo r the study. COMPARISON: 08/18/2023 FINDINGS: There is a single living fetus in vertex presentation. The placenta is anterior. heart rate is 143 beats per minute (bpm). Biophysical profile performed by the technologist: breathing (30 sec sustained breathing in 30 minutes): 2 out of 2 movement (3 gross body movements in 30 minutes): 2 out of 2 tone (one episode of dxtmalg-eaztojmym-sqwjddx limb movement): 2 out of 2 Amniotic fluid pocket (2 cm): 2 out of 2 Total score: 8 out of 8 IMPRESSION: 1. Single living fetus in vertex presentation. 2. Biophysical profile 8 out of 8. Reviewed, dictated and finalized at location B. K PROCESSING CLERK
--- NOTE | ~2023-08-26 | US_ITS ---
EXAMINATION: US OB follow up w BPP DATE: 08/22/2023 10:25 INDICATION: Preeclampsia during third trimester . Assess biophysical profile and estimated f etal weight . TECHNIQUE: Real-time pelvic ultrasound was performed. The interpreting radiologist was not present fo r the study. COMPARISON: 08/15/2023 FINDINGS: There is a single living fetus in vertex presentation. The placenta is anterior. heart rate is 138 beats per minute (bpm). Normal amniotic fluid index of 14.7 cm (5th%-95%: 7.7-24.9 cm at 36 week s estimated gestational age) The following biometric data were obtained: BPD: 8.8 cm -> 35 weeks 4 days Head circumference: 32.7 cm -> 37 weeks 0 days Abdominal circumference: 33.7 cm -> 37 weeks 4 days Femur length: 7.1 cm -> 36 weeks 3 days These measurements are concordant. Head circumference to abdominal circumference ratio: 0.97 (normal range 0.92-1.06). Estimated weight: 3085 g (+/-) 463 g, 6lbs 13oz (+/-) 16oz Biophysical profile performed by the technologist: breathing (30 sec sustained breathing in 30 minutes): 2 out of 2 movement (3 gross body movements in 30 minutes: 2 out of 2 tone (one episode of hqjbgiv-gxfprhlzn-tzvalgl limb movement): 2 out of 2 Amniotic fluid pocket (2 cm): 2 out of 2 Total score: 8 out of 8 IMPRESSION: 1. Single living fetus in vertex presentation. 2. Normal amniotic fluid index of 14.7 cm. 3. Biophysical profile 8 out of 8. 4. Estimated weight is 72nd percentile by Hadlock criteria when 09/17/2023 is used as the estim ated date of delivery (ELANA). Please correlate with clinical information or earlier ultrasounds for mo st accurate ELANA. Reviewed, dictated and finalized at location A. RVISOR INSPECTION IMPRESSION: 1. Single living fetus in vertex presentation. 2. Normal amniotic fluid index of 14.7 cm. 3. Biophysical profile 8 out of 8. 4. Estimated weight is 72nd percentile by Hadlock criteria when 4 is used as the estimated date of delivery (ELANA). Please correlate with clinic al information or earlier ultrasounds for most accurate ELANA.
--- NOTE | ~2023-08-26 | US_ITS ---
EXAMINATION: US OB BPP wo non-stress DATE: 08/15/2023 10:59 MUSIC EXECUTIVE INDICATION: Preeclampsia TECHNIQUE: Real-time transabdominal obstetric ultrasound. FINDINGS: Comparison 08/11/2023 There is a single living fetus in vertex presentation. The placenta is anterior without placenta pre via. cardiac activity and movement is noted with a heart rate of 147 beats per minute. Biophysical profile: breathin of 2 movement: 2 of 2 tone: 2 of 2 Amniotic flud pocket: 2 of 2 Total score: 8 of 8 IMPRESSION: 1. Single living intrauterine in vertex presentation. 2: Total biophysical profile score of 8/8. Reviewed, dictated and finalized at location L. C EXECUTIVE
[2023-08-26 11:41] LABS: Basophils Absolute Auto 0.1 K/mm3 (0.0-0.1); Basophils Percent Auto 0.5 % (0.2-1.2); Eosinophils Absolute Auto 0.1 K/mm3 (0-0.3); Eosinophils Percent Auto 0.5 % (0-4.4); Hematocrit 35.5 % (37.0-47.0); Hemoglobin 11.1 g/dL (12.0-15.0); Immature Granulocyte Absolute 0.04 K/mm3 (0.00-0.031); Immature Granulocyte Percent A 0.4 % (0-0.5); Lymphocytes Absolute Auto 2.16 K/mm3 (0.9-3.2); Lymphocytes Percent Auto 23.6 % (18.3-44.2); Mean Corpuscular HGB Conc 31.3 g/dl (32-36); Mean Corpuscular Hemoglobin 26.4 pg (26-34); Mean Corpuscular Volume 84.5 fl (80-100); Mean Platelet Volume 8.9 fl (7.4-10.4); Monocytes Absolute Auto 0.6 K/mm3 (0.1-0.6); Neutrophils Absolute Auto 6.2 K/mm3 (1.3-6.7); Platelet Count Result 317 k/mm3 (150-375); Red Cell Distribution Width 13.3 % (11.5-14.5); White Blood Count 9.2 K/mm3 (4.5-10.0)
[2023-08-26 11:43] LABS: Appearance Urine Cloudy (Clear); Bacteria Urine Rare /hpf; Bilirubin Urine Negative (Negative); Blood Urine Negative (Negative); Color Urine Yellow (Yellow); Glucose Urine UA Negative (Negative); Ketones Urine Trace mg/dL (Negative); Leukocyte Esterase Ur 2+ LEU/UL (NEGATIVE); Nitrate Urine Negative (Negative); Non Pathogenic Casts 0-2; Protein Urine 1+ mg/dL (Negative); RBC Urine 0-2 /hpf (0-2); Specific Grav Ur 1.025 (1.001-1.035); Squamous Epithelial Cell Urine Many /hpf (Few); WBC Urine 21-50 /hpf (0-3); pH Urine 6.5 (5.0-9.0)
[2023-08-26 11:44] LABS: Add Urine Microscopic? YES; Alanine Aminotransferase 11 U/L (6-35); Albumin Level 3.4 g/dL (3.5-5.1); Alkaline Phosphatase 170 U/L (38-126); Anion Gap 9 mmol/L (8-16); Aspartate Amino Transferase 15 U/L (14-36); Bilirubin,Total 0.3 mg/dL (0.2-1.3); Blood Urea Nitrogen 9 mg/dL (7-17); Calcium 9.5 mg/dL (8.4-10.2); Carbon Dioxide 18 mmol/L (22-30); Chloride 105 mmol/L (98-107); Estimated Glomerular Filt Rate > 60; Glucose 105 mg/dL (65-110); Potassium 4.3 mmol/L (3.4-5.0); Sodium 132 mmol/L (137-145); Uric Acid 4.9 mg/dL (2.5-7.5)
[2023-08-26 12:02] LABS: Creatinine Urine 219.9 mg/dL; Total Protein Urine Random 38 mg/dL; Ur Ttl Prot Creatinine Ratio 0.17 mg/mg (0-0.20)
[2023-08-26 12:10] VITALS: BP 125/81; PULSE 90
[2023-08-28 15:49] LABS: Rapid Plasma Reagin Non-Reactive (NonReactive)
== END 2023-11-09 23:59 | disposition home or self-care (01) ==
LOC: ANHOBOP 10:54
PROVIDERS: PCP Nurse Practitioner Family; Visit Provider Obstetrics & Gynecology
DX: O14.93 Unspecified pre-eclampsia, third trimester (principal); Z3A.34 34 weeks gestation of pregnancy; Z3A.35 35 weeks gestation of pregnancy; Z3A.36 36 weeks gestation of pregnancy
CPT/HCPCS: 36415; 59025; 76816; 76819; 80053; 81001; 82570; 84156; 84550; 85025; 86592; 86850; 86900; 86901; 87086; 87088

== ENCOUNTER 2023-08-28 09:58 | Inpatient (IN) | payer OTHER, SELFPAY ==
[2023-08-28] VITALS (75 sets, daily range): BP systolic 107–145; BP diastolic 65–98; PULSE 55–93; RESP 12–20; TEMP 36.3–36.8; O2SAT 99–100; BMI 44.2
--- NOTE | 2023-08-28 09:58 | LDADM ---
This patient, Melani Emmanuel, was admitted to Labor/Delivery/Recovery 119 on 08/28/23 at 09:58. Plans for labor, pain management and were discussed with patient. Patient/family oriented to hospital policies and general routines including ID bracelet, bed and alarms, visiting hours, pain management, procedures, bathroom and other care routines, personal items, smoking policy, room service/diet and guest tray routines, infant security routines, and visiting hours. Patient/Family are encouraged to report perceived risks to care and to ask questions if they do not understand what they are told or what they should do. See OBIX for further documentation.
[2023-08-28] MEDS: LACTATED RINGERS 1,000 ML 125 ML IV CONT ×2 (10:32→11:27)
[2023-08-28] MEDS: CLINDAMYCIN 900 MG/D5W 50 ML 900 MG/50 ML PIGGYBACK 50 MG IVPB (10:33)
--- NOTE | 2023-08-28 11:03 | PM.IMHP ---
H&P: HPI History of Present Illness Date/Time: 08/28/23 11:03 Chief Complaint: pre-eclampsia Narrative: Melani is a 28yo @ 37.1wks who presents for scheduled repeat due to pre-eclampsia w/o severe features. She has been undergoing ANT twice weekly. She reports good movement. No ctx, VB or LOF. She denies any major headaches, vision changes, CP, SOB, or RUQ pain. Her is complicated by: - H/o PEC in prior ; on ASA - Obesity; BMI 40 - H/o kidney stones - H/o hypothyroidism; TSH 2.48 - Depression/anxiety on zoloft - Previous c/s x1;?for repeat with tubal - Short interval; last c/s on 03/01/22 -?Pannus infection, s/p bactrim and nystatin - GBS positive - Pre-eclampsia w/o SF; total protein 370g Review of Systems Constitutional: Constitutional: Denies chills, Denies fever(s) and Denies headache(s) Eyes: Eyes: Denies change in vision ENT: Denies headache(s) Cardiovascular: Cardiovascular: Denies chest pain and Denies dyspnea Respiratory: Respiratory: Denies dyspnea Genitourinary: Genitourinary: Denies abnormal vaginal bleeding and Denies vaginal discharge Neurologic: Denies headache(s) Psychiatric: Psychiatric: Denies anxiety and Denies depression [facility] Past Medical History Medical History (Updated 08/28/23 @ 11:09 by Sujata Carrillo MD) Anxiety Blood glucose abnormal Hypothyroid Hypothyroidism Kidney stones Pre-eclampsia added to pre-existing hypertension Preeclampsia Suppression of menstruation Surgical History Surgical History (Updated 08/28/23 @ 11:09 by Sujata Carrillo MD) H/O lithotripsy (~08/21/13) right kidney stones Family History Family History Grandparent Heart disease Lung cancer Spina bifida Sibling Gestational [-induced] hypertension without significant proteinuria, second trimester Gestational [-induced] hypertension without significant proteinuria, third trimester Hypothyroidism Mother Gestational [-induced] hypertension without significant proteinuria, third trimester Social History Social History (Reviewed 08/22/23 @ 10:47 by CARMELLA Paz Smoking status: Never smoker Second hand tobacco smoke exposure: No Alcohol intake: never Substance use: never Substance use type: does not use Do You Feel Safe in your Home?: Yes Lack of Transportation: No Lack of Food: Never True Current Housing: I Have Housing Concerned About Future Housing: No Difficulty Paying Gas/Electric Bills: No Difficulty Paying for Meds: No Currently Unemployed: No Education: Bachelor's Degree Difficulty w/ Childcare or Family Care: No Living arrangements: other Additional living arrangements comments: spouse Occupation/Education: occupation 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 Gender identity (if verbalized by the patient): Female Sexual Orientation (if Verbalized by the Patient): Straight or Heterosexual Spiritual care concerns: No Meds Home Medications and Allergies Home Medications Medication Instructions Recorded Confirmed Type doxylamine succinate 25 mg tablet 12.5 mg PO TID #90 tabs 02/06/23 08/28/23 Rx (Unisom (doxylamine)) vit no.95-ferrous 1 tablet PO DAILY 08/15/23 08/28/23 History fumarate 28 mg-folic acid 800 mcg tablet () sertraline 25 mg tablet (Zoloft) 25 mg PO DAILY 08/18/23 08/28/23 History Allergies Allergy/AdvReac Type Severity Reaction Status Date / Time No Known Allergies Allergy Verified 08/22/23 10:46 Vital Signs Vital Signs - 24 hr 08/28/23 10:22 08/28/23 10:31 08/28/23 10:46 Pulse Rate 91 88 76 Blood Pressure 133/90 138/82 134/90 Oxygen Delivery 08/28/23 11:01 08/28/23 10:44 Pulse Rate 84 Blood Pressure 145/86 H Oxygen Delivery Room Air Exam Const: General: cooperative, comforta
[2023-08-28 11:13] LABS: Basophils Absolute Auto 0.1 K/mm3 (0.0-0.1); Basophils Percent Auto 0.7 % (0.2-1.2); Eosinophils Absolute Auto 0.1 K/mm3 (0-0.3); Eosinophils Percent Auto 0.7 % (0-4.4); Hematocrit 33.2 % (37.0-47.0); Hemoglobin 10.7 g/dL (12.0-15.0); Immature Granulocyte Absolute 0.03 K/mm3 (0.00-0.031); Immature Granulocyte Percent A 0.3 % (0-0.5); Lymphocytes Absolute Auto 2.33 K/mm3 (0.9-3.2); Lymphocytes Percent Auto 26.2 % (18.3-44.2); Mean Corpuscular HGB Conc 32.2 g/dl (32-36); Mean Corpuscular Hemoglobin 26.4 pg (26-34); Mean Platelet Volume 8.9 fl (7.4-10.4); Monocytes Absolute Auto 0.7 K/mm3 (0.1-0.6); Monocytes Percent Auto 7.3 % (2.6-8.5); Neutrophils Absolute Auto 5.8 K/mm3 (1.3-6.7); Neutrophils Percent Auto 64.8 % (45.5-73.1); Platelet Count Result 289 k/mm3 (150-375); Red Blood Count 4.05 M/mm3 (4.2-5.4); Red Cell Distribution Width 13.3 % (11.5-14.5); White Blood Count 8.9 K/mm3 (4.5-10.0)
--- NOTE | 2023-08-28 11:21 | WPDHPUPDATE1 ---
History and Physical Update Update Date/Time: 08/28/23 11:21 History and Physical has been reviewed, including an updated exam of the patient. There are NO changes in the patient's condition. Risks, benefits, and alternatives have been discussed and questions answered. Patient agrees to proceed with procedure.
--- NOTE | 2023-08-28 11:21 | WPDANESEPP ---
Anes - Eval Pre Procedure Procedure: Operation Date: 08/28/23 12:00 Proposed Procedures p Repeat Section with Bilateral Salpingectomy - Sujata Carrillo MD Date/Time: 08/28/23 11:21 Pre Op Diagnosis: C Section Patient Data Age: 28 Gender: F Height: 1.52 m Weight: 102.75 kg Last Vital Signs Pulse 93 08/28/23 11:16 BP 141/87 H 08/28/23 11:16 O2 Del Method Room Air 08/28/23 10:44 Allergies Allergy/AdvReac Type Severity Reaction Status Date / Time No Known Allergies Allergy Verified 08/22/23 10:46 Home Medications Medication Instructions Recorded Confirmed Type doxylamine succinate 25 mg tablet 12.5 mg PO TID #90 tabs 02/06/23 08/28/23 Rx (Unisom (doxylamine)) vit no.95-ferrous 1 tablet PO DAILY 08/15/23 08/28/23 History fumarate 28 mg-folic acid 800 mcg tablet () sertraline 25 mg tablet (Zoloft) 25 mg PO DAILY 08/18/23 08/28/23 History Laboratory Tests 08/28/23 11:08 WBC 8.9 K/mm3 (4.5-10.0) RBC 4.05 L M/mm3 (4.2-5.4) Hgb 10.7 L g/dL (12.0-15.0) Hct 33.2 L % (37.0-47.0) MCV 82.0 fl (80-100) MCH 26.4 pg (26-34) MCHC 32.2 g/dl (32-36) RDW 13.3 % (11.5-14.5) Plt Count 289 k/mm3 (150-375) MPV 8.9 fl (7.4-10.4) Immature Gran % (Auto) 0.3 % (0-0.5) Neut % (Auto) 64.8 % (45.5-73.1) Lymph % (Auto) 26.2 % (18.3-44.2) [place] % (Auto) 7.3 % (2.6-8.5) Eos % (Auto) 0.7 % (0-4.4) Baso % (Auto) 0.7 % (0.2-1.2) Lymph # (Auto) 2.33 K/mm3 (0.9-3.2) [place] # (Auto) 0.7 H K/mm3 (0.1-0.6) Eos # (Auto) 0.1 K/mm3 (0-0.3) Baso # (Auto) 0.1 K/mm3 (0.0-0.1) Abs Immat Gran (auto) 0.03 K/mm3 (0.00-0.031) Absolute Neuts (auto) 5.8 K/mm3 (1.3-6.7) Absolute Nucleated RBC 0.0 K/mm3 (0.0-0.012) Nucleated RBC % 0.0 % (0.0-0.2) Sodium Pending Potassium Pending Chloride Pending Carbon Dioxide Pending Anion Gap Pending BUN Pending Creatinine Pending Estim Creat Clear Calc Pending Estimated GFR Pending Glucose Pending Uric Acid Pending Calcium Pending Total Bilirubin Pending AST Pending ALT Pending Alkaline Phosphatase Pending Total Protein Pending Albumin Pending Patient hx anesthesia problems: none Family hx anesthesia problems: none Results Review: All pre-operative results and documents have been reviewed as part of the pre-operative evaluation. [facility] Past Medical History Medical History (Updated 08/28/23 @ 11:09 by Sujata Carrillo MD) Anxiety Blood glucose abnormal Hypothyroid Hypothyroidism Kidney stones Pre-eclampsia added to pre-existing hypertension Preeclampsia Suppression of menstruation Surgical History Surgical History (Updated 08/28/23 @ 11:09 by Sujata Carrillo MD) H/O lithotripsy (~08/21/13) right kidney stones Family History Family History Grandparent Heart disease Lung cancer Spina bifida Sibling Gestational [-induced] hypertension without significant proteinuria, second trimester Gestational [-induced] hypertension without significant proteinuria, third trimester Hypothyroidism Mother Gestational [-induced] hypertension without significant proteinuria, third trimester Social History Social History Smoking status: Never smoker Second hand tobacco smoke exposure: No Alcohol intake: never Substance use: never Substance use type: does not use Do You Feel Safe in your Home?: Yes Lack of Transportation: No Lack of Food: Never True Current Housing: I Have Housing Concerned About Future Housing: No Difficulty Paying Gas/Electric Bills: No Difficulty Paying for Meds: No Currently Unemployed: No Education: [place]
[2023-08-28 11:25] LABS: Alanine Aminotransferase 11 U/L (6-35); Albumin Level 3.3 g/dL (3.5-5.1); Alkaline Phosphatase 179 U/L (38-126); Anion Gap 6 mmol/L (8-16); Aspartate Amino Transferase 16 U/L (14-36); Bilirubin,Total 0.3 mg/dL (0.2-1.3); Blood Urea Nitrogen 6 mg/dL (7-17); Calcium 8.9 mg/dL (8.4-10.2); Carbon Dioxide 22 mmol/L (22-30); Chloride 106 mmol/L (98-107); Estimated CRCL calculation 112 ml/min; Estimated Glomerular Filt Rate > 60; Glucose 73 mg/dL (65-110); Potassium 4.2 mmol/L (3.4-5.0); Sodium 134 mmol/L (137-145); Uric Acid 4.8 mg/dL (2.5-7.5)
[2023-08-28] MEDS: ceFAZolin 2 GM/D5W 50 ML 2 GM/50 ML BAG IVPB (11:43)
--- NOTE | 2023-08-28 11:43 | P.PNAN_ITS ---
Anes - Eval Final PreProcedure Day of Procedure 08/28/23 11:43 Patient weight: morbidly obese Heart: regular rate and rhythm Lungs: clear to auscultation Airway: Mallampati scale class II Neurological: alert and oriented Last oral intake: >/= 8 hours ASA classification: III Emergent: no Anesthetic plan: proceed Anesthesia type and monitoring: regional spinal and standard monitoring Results Review: All pre-operative results and documents have been reviewed as part of the pre- operative evaluation. Informed Consent: The patient's anesthetic plan and its attendant risks and benefits were discusse d with the patient/family/POA. Questions were solicited and answers provided to the satisfaction of the patient/family/POA.
--- NOTE | 2023-08-28 11:58 | PC.NURSE ---
1130-Introductions were made and mother shared her year of good experience with her last baby baby led weaning with her now . Encouraged continuous oltn-hi-yxni until the first feeding if is stable. Reviewed using hand expression to remove milk if infant doesn't latch in the first hour with separation after the C/S.?Reviewed finger feeding (with clean hands)the first milk to preserve breast focus, encourage and to protect the milk supply if infant isn't latching the first hour. Demonstration and resources were given on how to hand express using the QR code in bonding and feeding trifold. We discussed any additional questions and concerns. Parents voiced understanding of information, reviewed consultation availability and to call if there is a request for assistance.
[2023-08-28] MEDS: KETOROLAC 30 MG/ML VIAL (*BKC) 15 MG IV PUSH (12:20)
--- NOTE | 2023-08-28 13:28 | W.PM.OBCSD ---
OB - Delivery Note Procedure Delivery date: 08/28/23 Pre-op diagnosis: Positive Group B Strep (GBS), Preeclampsia w/o severe features and Previous Delivery Post-op Diagnosis: Same Procedure Performed: Repeat Secondary branch: low cervical, transverse and Tubal Ligation Surgeon: Sujata Carrillo MD Anesthesia type: Spinal Description of Procedure/Findings: Female in cephalic presentation, clear fluid. Very minimal scar tissue; normal uterus, normal bilateral fallopian tubes and ovaries. Good hemostasis at end of case. JUVENAL dressing applied at end of case. Estimated Blood Loss: 300 IV Fluids: 1,600 Drains: No Packing: No Pathology: Yes (left and right fallopian tubes, placenta) Complications: No immediate complications Condition: Stable Disposition: Floor Baby Date of : 08/28/23 Weeks of gestation at delivery: 37 (.1) Infant gender: Female Weight (pounds): 5 Weight (ounces): 15 presentation: vertex Placenta delivery description: Expressed Cord Vessel Description: 3 Vessels and Delayed Cord Clamping score one minute: 8 score five minutes: 9 Narrative: She was counseled on all risks and benefits in detail. She was taken to the operating room where spinal was placed. She was then prepped and draped in the normal sterile fashion and a Traxi device was used for better exposure. She received 2g Ancef and a time out was performed. A Pfannenstiel incision was made in the skin and carried down to the underlying fascia. The fascia was nicked on either side of the midline and the fascial incision was extended laterally and superiorly using curved An scissors. The fascia was then elevated using Kamran clamps and the underlying rectus muscles were dissected off the fascia, superiorly and inferiorly. The rectus muscles were in the midline and the peritoneum was entered sharply. Once adequate exposure was obtained, a Mobius self retractor was placed within the abdomen as no adhesions were palpated. A bladder flap was created. A low transverse incision was made on the lower uterine segment and clear fluid was noted. The occiput was brought to the hysterotomy and the head was easily delivered. The shoulders and body then followed without complications. The had spontaneous cry and the mouth and nose were bulb suctioned. Cord clamping was delayed, but then doubly clamped and cut and the infant was handed off to the awaiting pediatric nurse. A segment of the cord was collected for cord gases. The remaining cord blood was collected for typing. With pitocin infusing, the placenta delivered with gentle traction on the cord without complications. The uterus was then cleared out of all clots and debris using a clean, moist lap. The hysterotomy was then repaired in a running, interlocking fashion using 0 Vicryl. A second layer imbricating suture was then made using 0 Vicryl. The hysterotomy was found to be hemostatic and good uterine tone was noted. The bilateral adnexa were examined and found to be normal. The left fallopian tube was elevated and grasped with a [place]. The mesosalpinx was serially clamped, coagulated, and transected using the LigaSure device. The fallopian tube was handed off for pathology. The right fallopian tube was elevated and grasped with a [place]. The mesosalpinx was serially clamped, coagulated, and transected using the LigaSure device. The fallopian tube was handed off for pathology. The pelvis was cleared of all clots and fluid. The Mobius retractor was removed from the abdomen. The peritoneum, muscle, and fascia were examined and made hemostatic with bovie cautery. The fascia was then repaired using a 0 Vicryl suture in a running fashion. The subcutaneous tissue was then irrigated and made hemostatic with bovie cautery. The subcutaneous tissue was then reapproximated using 2-0 Vicryl. The skin was then closed using 4-0 Monocryl in a running
[2023-08-28] MEDS: OXYTOCIN 30 UNITS/NS 500 ML 30 UNITS/500 ML BAG 125 UNITS IV CONT (15:03)
[2023-08-28] MEDS: diphenhydrAMINE HCl INJ 50 MG/ML VIAL 25 MG IV PUSH (18:40)
[2023-08-29 00:34] VITALS: BP 128/73; PULSE 97; RESP 18; TEMP 36.5; O2SAT 99
[2023-08-29 04:00] VITALS: BP 113/82; PULSE 110; RESP 18; TEMP 36.9; O2SAT 99
[2023-08-29] MEDS: HYDROcodone/acetaminophen (*CRX) 10-325 MG TABLET 1 TAB PO (05:10)
[2023-08-29 05:38] LABS: Basophils Absolute Auto 0.1 K/mm3 (0.0-0.1); Basophils Percent Auto 0.5 % (0.2-1.2); Eosinophils Absolute Auto 0.1 K/mm3 (0-0.3); Eosinophils Percent Auto 1.1 % (0-4.4); Hematocrit 31.1 % (37.0-47.0); Hemoglobin 9.6 g/dL (12.0-15.0); Immature Granulocyte Absolute 0.05 K/mm3 (0.00-0.031); Immature Granulocyte Percent A 0.4 % (0-0.5); Lymphocytes Absolute Auto 2.28 K/mm3 (0.9-3.2); Lymphocytes Percent Auto 18.9 % (18.3-44.2); Mean Corpuscular HGB Conc 30.9 g/dl (32-36); Mean Corpuscular Hemoglobin 26.1 pg (26-34); Mean Corpuscular Volume 84.5 fl (80-100); Mean Platelet Volume 9.3 fl (7.4-10.4); Monocytes Absolute Auto 0.9 K/mm3 (0.1-0.6); Monocytes Percent Auto 7.7 % (2.6-8.5); Neutrophils Absolute Auto 8.6 K/mm3 (1.3-6.7); Neutrophils Percent Auto 71.4 % (45.5-73.1); Platelet Count Result 267 k/mm3 (150-375); Red Blood Count 3.68 M/mm3 (4.2-5.4); Red Cell Distribution Width 13.4 % (11.5-14.5); White Blood Count 12.1 K/mm3 (4.5-10.0)
--- NOTE | 2023-08-29 06:47 | PM.OBPNVD ---
OB - PN: Subj Subjective Date/time seen: 08/29/23 06:47 Narrative: POD#1 Melani reports doing well today. Her bleeding is drafter civil (cad). Her pain is controlled. She is tolerating regular diet, passing gas. Wright was removed this morning; no spontaneous void yet but has the urge to go. She has ambulated and sat in the chair without issues. She denies any issues with her incision. She is breast feeding. OB - PN: Obj Data Labs 08/29/23 04:13 08/28/23 11:08 Labs: Laboratory Results - last 24 hr 08/28/23 08/29/23 11:08 04:13 WBC 8.9 12.1 H RBC 4.05 L 3.68 L Hgb 10.7 L 9.6 L Hct 33.2 L 31.1 L MCV 82.0 84.5 MCH 26.4 26.1 MCHC 32.2 30.9 L RDW 13.3 13.4 Plt Count 289 267 MPV 8.9 9.3 Immature Gran % (Auto) 0.3 0.4 Neut % (Auto) 64.8 71.4 Lymph % (Auto) 26.2 18.9 [place] % (Auto) 7.3 7.7 Eos % (Auto) 0.7 1.1 Baso % (Auto) 0.7 0.5 Lymph # (Auto) 2.33 2.28 [place] # (Auto) 0.7 H 0.9 H Eos # (Auto) 0.1 0.1 Baso # (Auto) 0.1 0.1 Abs Immat Gran (auto) 0.03 0.05 H Absolute Neuts (auto) 5.8 8.6 H Absolute Nucleated RBC 0.0 0.0 Nucleated RBC % 0.0 0.0 Sodium 134 L Potassium 4.2 Chloride 106 Carbon Dioxide 22 Anion Gap 6 L BUN 6 L Creatinine 0.70 Estim Creat Clear Calc 112 Estimated GFR > 60 Glucose 73 Uric Acid 4.8 Calcium 8.9 Total Bilirubin 0.3 AST 16 ALT 11 Alkaline Phosphatase 179 H Total Protein 7.0 Albumin 3.3 L OB - PN A/P Assessment and Plan (1) S/P repeat low transverse : Code(s): Z98.891 - History of uterine scar from previous surgery Status: Acute (2) Status post bilateral salpingectomy: Code(s): Z90.79 - Acquired absence of other genital organ(s) Status: Acute Plan day: 1 Plan: routine care Comments: - awaiting spontaneous void - pain meds - hydration and ambulation Time Spent With Patient Time: Total time spent is greater than 50% in coordination of care (as documented) at patient's floor/unit and/or counseling patient: Review of Systems Constitutional: Constitutional: Denies chills, Denies fever(s) and Denies headache(s) Eyes: Eyes: Denies change in vision ENT: Denies dizziness and Denies headache(s) Cardiovascular: Cardiovascular: Denies chest pain, Denies palpitations and Denies dyspnea Respiratory: Respiratory: Denies cough and Denies dyspnea Gastrointestinal: Gastrointestinal: Denies nausea and Denies vomiting Genitourinary: Comments: normal bleeding Neurologic: Denies dizziness and Denies headache(s) Endocrine: Endocrine: Denies palpitations Exam Const: General: cooperative, comfortable, no acute distress and obese Orientation/consciousness: patient oriented x3 Resp: Effort & Inspection: normal respiratory effort Auscultation: clear to auscultation bilaterally Cardio: Rate: regular rate GI: Inspection: non-distended, incision (covered with clean dressing) and Pannus present GI Palp: Yes abdominal tenderness (appropriate) and Yes Soft to palpation Auscultation: normal bowel sounds : Other: fundus firm Skin: General skin exam: normal color Neuro: General: patient oriented x3 Extrem: General: normal to inspection Psych: Appearance: grossly normal Affect: normal affect Attitude: cooperative
--- NOTE | 2023-08-29 07:31 | WPDANLDPN2 ---
Anes-Prog Note L&D Date/Time: 08/29/23 07:31 Comfortable throughout: section Neuraxial method: spinal Epidural/Spinal procedure site: clean & non-tender Neuro status: Neuro function grossly intact. Cardiovascular status: normal Respiratory status: normal Airway patency: baseline Mental status: baseline Post-Op hydration status: normal Vital Signs: Last Vital Signs Temp 36.9 C 08/29/23 04:00 Pulse 110 H 08/29/23 04:00 Resp 18 08/29/23 04:00 BP 113/82 08/29/23 04:00 Pulse Ox 99 08/29/23 04:00 O2 Del Method Room Air 08/28/23 15:05 Pain score (VAS): 08/30 I/O: Intake & Output 08/28/23 08/28/23 08/29/23 15:59 23:59 07:59 Intake Total 2650 Output Total 300 448 Balance 2350 -448 Post-procedural complaints: none Patient feedback: Patient satisfied with anesthetic care.
--- NOTE | 2023-08-29 07:31 | WPDANLDNPN2 ---
Anes-Prog Note L&D-Neuraxial Date/Time: 08/29/23 07:31 Neuraxial medications: intrathecal PF morphine Opiod-related complaints: none Patient feedback: Patient satisfied with post-operative pain management.
[2023-08-29] MEDS: DOCUSATE SODIUM 100 MG CAPSULE PO ×2 (07:34→16:26)
[2023-08-29] MEDS: POLYSACCHARIDE IRON COMPLEX 150 MG CAPSULE PO ×2 (07:34→16:26)
[2023-08-29] MEDS: MULTIVIT/MIN/PREN/FOL AC/IRON TABLET 1 TAB PO (07:35)
[2023-08-29] MEDS: IBUPROFEN 600 MG TABLET PO ×3 (07:35→21:15)
[2023-08-29] MEDS: LIDOCAINE 5% PATCH 1 PATCH TRANSDERM (07:36)
[2023-08-29] MEDS: SERTRALINE HCL 25 MG TABLET PO (07:39)
[2023-08-29 07:40] VITALS: BP 125/82; PULSE 106; RESP 16; TEMP 36.6; O2SAT 98
[2023-08-29 12:49] VITALS: BP 135/93; PULSE 106; RESP 16; TEMP 37.3; O2SAT 98
--- NOTE | 2023-08-29 12:58 | PC.NURSE ---
[id number] Reintroductions were made and Mother verbalizes she is able to independently latch with appropriate positioning and alignment. She denies any nipple discomfort and is responsively . Mother is attempting to latch now. LC observed mother latch to the left breast using cradle positioning ineffectively without infant maintaining. fills her mouth with the nipple and nipple is seen in the corner of her mouth. Mother states infant does better on the right and effectively latches using cradle to the right breast. Infant demonstrates effective , flanged mouth drinking frequently. Infant is currently meeting outcomes for weight, output, jaundice, blood sugar and feeding frequencies of 8-12 times in 24 hours. Mother declines any additional assistance or education at this time. Mother is encouraged to call for assistance if her doesn?t latch, pain with latching, questions or concerns. Mother voiced understanding of information shared along with the mom/baby guide for an additional resource. Reported to the Primary RN.
[2023-08-29] MEDS: HYDROcodone/acetaminophen (*CRX) 5-325 MG TABLET 1 TAB PO ×2 (14:22→21:15)
--- NOTE | 2023-08-29 15:06 | PC.NURSE ---
[id number] Mother verbalizes she is able to independently latch with appropriate positioning and alignment. She denies any nipple discomfort and is responsively . Infant is currently meeting outcomes for weight, output, jaundice, blood sugar and feeding frequencies of 8-12 times in 24 hours. Mother declines any additional assistance, education at this time and states she accepted formula just in case . Encouraged mother to protect her milk supply with . Mother is encouraged to call for assistance if her infant doesn?t latch, pain with latching, questions or concerns. Mother voiced understanding of information shared along with the mom/baby guide for an additional resource. Reported to the Primary RN.
[2023-08-29 16:00] VITALS: BP 131/90; PULSE 108; RESP 18; TEMP 37; O2SAT 99
[2023-08-29] MEDS: SIMETHICONE 80 MG TAB.CHEW PO (16:37)
[2023-08-29 20:30] VITALS: BP 135/81; PULSE 107; RESP 18; TEMP 37; O2SAT 99
[2023-08-30] MEDS: ONDANSETRON HCL ODT 4 MG TABLET PO ×2 (07:03→12:59)
--- NOTE | 2023-08-30 07:08 | P.PNOB_ITS ---
OB - PN: Subj Subjective Date/time seen: 08/30/23 07:08 Narrative: POD#2 Melani reports doing well today. Her bleeding is ux researcher. Her pain is controlled. She is tolerating regular diet, voiding, passing gas, and ambulating without issues. She denies any issues with her incision/JUVENAL dressing. She is breast feeding. OB - PN: Obj Data Labs 08/29/23 04:13 08/28/23 11:08 OB - PN A/P Assessment and Plan (1) S/P repeat low transverse : Code(s): Z98.891 - History of uterine scar from previous surgery Status: Acute (2) Status post bilateral salpingectomy: Code(s): Z90.79 - Acquired absence of other genital organ(s) Status: Acute Plan day: 2 Plan: routine care and discharge home (tomorrow) Comments: - Pelvic rest; take meds as prescribed - Incision care/no heavy lifting - ER return precautions: fever, n/v/abd pain, bleeding, HTN Time Spent With Patient Time: Total time spent is greater than 50% in coordination of care (as documented) at patient's floor/unit and/or counseling patient: Review of Systems Constitutional: Constitutional: Denies chills, Denies fever(s) and Denies headache(s) Eyes: Eyes: Denies change in vision ENT: Denies dizziness and Denies headache(s) Cardiovascular: Cardiovascular: Denies chest pain, Denies palpitations and Denies dyspnea Respiratory: Respiratory: Denies cough and Denies dyspnea Gastrointestinal: Gastrointestinal: Denies nausea and Denies vomiting Genitourinary: Comments: normal bleeding Neurologic: Denies dizziness and Denies headache(s) Endocrine: Endocrine: Denies palpitations Exam Const: General: cooperative, comfortable, no acute distress and obese Orientation/consciousness: patient oriented x3 Resp: Effort & Inspection: normal respiratory effort Auscultation: clear to auscultation bilaterally Cardio: Rate: regular rate GI: Inspection: non-distended and incision (covered with JUVENAL dressing) GI Palp: Yes abdominal tenderness (appropriate) and Yes Soft to palpation Aus cultation: normal bowel sounds : Other: fundus firm Skin: General skin exam: normal color Neuro: General: patient oriented x3 Extrem: General: normal to inspection Psych: Appearance: grossly normal Affect: normal affect Attitude: coop erative
[2023-08-30 07:35] VITALS: BP 128/86; PULSE 98; RESP 16; TEMP 37.1; O2SAT 99
[2023-08-30] MEDS: MULTIVIT/MIN/PREN/FOL AC/IRON TABLET 1 TAB PO (08:18)
[2023-08-30] MEDS: POLYSACCHARIDE IRON COMPLEX 150 MG CAPSULE PO ×2 (08:18→16:25)
[2023-08-30] MEDS: DOCUSATE SODIUM 100 MG CAPSULE PO ×2 (08:18→16:26)
[2023-08-30] MEDS: IBUPROFEN 600 MG TABLET PO ×2 (08:19→14:46)
[2023-08-30] MEDS: HYDROcodone/acetaminophen (*CRX) 5-325 MG TABLET 1 TAB PO ×3 (08:19→21:40)
[2023-08-30] MEDS: SERTRALINE HCL 25 MG TABLET PO (08:19)
--- NOTE | 2023-08-30 10:04 | PC.NURSE ---
[id number] Mother verbalizes she is able to independently latch with appropriate positioning and alignment. She denies any nipple discomfort and is responsively . is currently meeting outcomes for weight, output, jaundice, blood sugar and feeding frequencies of 8-12 times in 24 hours. breastfed this morning on the left breast and mother states it was a good latch with swallowing. Primary RN assessed that feeding. Mother is supplementing with 5mls at times to get her to calm down and breastfeed at times until her milk is full volume. Mother states her breast are feeling differently today and she believes her milk is transitioning. Mother shared that her daughter was born on the anniversary of the 3 year anniversary of her grandma's . After a discussion of her history, knowledge as well showing her confidence she declined any additional assistance or education at this time. Mother is encouraged to call for assistance if her doesn?t latch, difficulty waking infant, pain with latching, questions or concerns. Mother voiced understanding of information shared along with the mom/baby guide for an additional resource. Reported to the Primary RN.
[2023-08-30 12:20] VITALS: BP 146/74; PULSE 91; RESP 16; TEMP 36.6; O2SAT 99
[2023-08-30 15:45] VITALS: BP 118/75; PULSE 92; RESP 16; O2SAT 100
[2023-08-30 19:50] VITALS: BP 147/76; PULSE 105; RESP 18; TEMP 36.4; O2SAT 99
[2023-08-30] MEDS: SIMETHICONE 80 MG TAB.CHEW PO (21:40)
[2023-08-31] MEDS: IBUPROFEN 600 MG TABLET PO (04:55)
[2023-08-31] MEDS: HYDROcodone/acetaminophen (*CRX) 5-325 MG TABLET 1 TAB PO ×2 (04:55→09:04)
[2023-08-31 08:05] VITALS: BP 125/85; PULSE 87; RESP 16; TEMP 36.8; O2SAT 99
[2023-08-31] MEDS: SERTRALINE HCL 25 MG TABLET PO (09:00)
[2023-08-31] MEDS: MULTIVIT/MIN/PREN/FOL AC/IRON TABLET 1 TAB PO (09:01)
[2023-08-31] MEDS: POLYSACCHARIDE IRON COMPLEX 150 MG CAPSULE PO (09:01)
[2023-08-31] MEDS: DOCUSATE SODIUM 100 MG CAPSULE PO (09:02)
--- NOTE | 2023-08-31 09:10 | PC.NURSE ---
Dr. Carrillo notified that Adrien dressing battery pack is flashing and will not reset. I believe it is a malfunction of the unit. Dr. Carrillo will come by at noon to replace dressing.
[2023-08-31] MEDS: ONDANSETRON HCL ODT 4 MG TABLET PO (10:13)
[2023-08-31 11:46] VITALS: BP 134/80; PULSE 85; RESP 16; TEMP 36.6; O2SAT 100
--- NOTE | 2023-08-31 12:30 | PC.NURSE ---
Dr. Carrillo here to change the christel dressing and battery pack. Pt tolerated well
--- NOTE | 2023-08-31 14:35 | PC.NURSE ---
[id number] Mother verbalizes she is able to independently latch with appropriate positioning and alignment. She denies any nipple discomfort and is responsively . Infant is currently meeting outcomes for weight, output, jaundice, blood sugar and feeding frequencies of 8-12 times in 24 hours. experienced Mother declines any additional assistance or education at this time and is pumping after 60mls of transitional breast milk. Reviewed with mother the risks and benefits of pumping after , over supply, and preventing and treating engorgement, plugged ducts, and mastitis. Mother is aware there are risks and benefits stating if she pumps more than her daughter needs she will consider donating to a milk bank. Reviewed community resources, and when to call a provider using the resource of the feeding sheet along with the mom and baby guide. Mother voiced understanding of the education shared. Reported to the Primary RN.
[2023-09-01 09:21] VITALS: BP 142/94; PULSE 78; RESP 18; TEMP 37.1; O2SAT 100
--- NOTE | 2023-09-10 20:21 | PM.OBDSVD ---
DS: Admitting Diagnosis Discharge Date 08/31/23 Admitting Diagnosis pre-eclampsia previous desire for sterilization history of wound infection DS: Discharge Diagnosis Discharge Diagnosis (1) S/P repeat low transverse : Code(s): Z98.891 - History of uterine scar from previous surgery Status: Acute (2) Status post bilateral salpingectomy: Code(s): Z90.79 - Acquired absence of other genital organ(s) Status: Acute OB - DS: Summary OB Procedures : NST, PIH Mgmt and Ultrasound OB Procedures Intrapartum: low cervical, transverse and Tubal ligation OB Procedures: : None Peripartum Data Infant Delivery Method: Section Procedures: Procedures Operation Date: 08/28/23 12:00 Actual Procedure Side Surgeon p Repeat Section with Bilateral Salpingectomy Not Applicable Sujata Carrillo MD complications: none 1: Gender: Female Disposition of : home Status at Discharge Functional status at discharge: independent ambulation Overall status at discharge: patient is back to baseline Time Spent with Patient Time attestation: Total time spent providing and/or coordinating discharge services: Exam Const: General: cooperative, comfortable, no acute distress and obese Orientation/consciousness: patient oriented x3 Resp: Effort & Inspection: normal respiratory effort Auscultation: clear to auscultation bilaterally Cardio: Rate: regular rate GI: Inspection: non-distended, incision (covered with JUVENAL dressing) and Pannus present GI Palp: No abdominal tenderness and Yes Soft to palpation Auscultation: normal bowel sounds : Other: fundus firm Skin: General skin exam: normal color Neuro: General: patient oriented x3 Extrem: General: normal to inspection Psych: Appearance: grossly normal Affect: normal affect Attitude: cooperative DS: Data Data Completed and Pending Completed studies during hospitalization: Pending at discharge 08/28/23 12:22 Surgical [PTH] Routine Surgical [PTH] Routine Surgical [PTH] Routine Discharge Plan Discharge Attending physician on discharge: Sujata Carrillo Consulting providers: Vanessa Rowell; Damir Wu; Justina Romero Discharging Clinician: Sujata Carrillo Anticipated Discharge Date/Time: 08/31/23 09:00 Patient Disposition: Home, Self-Care Activity: may shower, may drive after 2 weeks and pelvic rest Diet: regular Discharge Instructions: Education: Mom and Baby Guide Given to: Mother Follow-Up: Call your delivering provider's office for an appointment to be seen in: 4 Weeks Mom and baby should come to the [facility] for the follow-up appointment. Appointment Date/Time: September 01, 2023 at 9:00 am What to expect at your follow-up visit: Physical Assessment Call [phone] if you are unable to keep your appointment time. BREAST CARE: * Wear a snug supportive bra. * For engorgement discomfort: Breast Feeding: * Apply warm moist washcloths * Express milk as needed to relieve engorgement * Wear loose clothing Bottle Feeding: * May apply ice packs * For sore nipples: * Identify correct latch-on * Apply warm moist washcloths before and after nursing * Air dry nipples after nursing * May apply Lansinoh cream to nipples ABDOMINAL INCISION: * Allow incision to air dry * Do NOT use lotions for powders on your incision * When showering, allow soap and water to run over the incision, but do not wash incision EPISIOTOMY/PERINEAL CARE: * Until bleeding stops, use your massiel bottle after urinating * Change your pad frequently throughout the day * You may take sitz baths several times a day (fill your bathtub with warm water and soak for 20 minutes.) Do NOT bathe in the water * No tub baths until seen by your physicia
== END 2023-08-31 14:22 | disposition home or self-care (01) | DRG 785 ==
LOC: ANHLDR 10:07 → ANHOB2 15:43
PROVIDERS: Admitting Provider Obstetrics & Gynecology; PCP Nurse Practitioner Family; Visit Provider Obstetrics & Gynecology
PROC: 10D00Z1 Extraction of Products of Conception, Low, Open Approach (ICD-10-PCS; CPT 59514; principal; 2023-08-28 12:00)
DX: O34.211 Maternal care for low transverse scar from previous cesarean delivery (principal); Z37.0 Single live birth; Z3A.37 37 weeks gestation of pregnancy; O14.94 Unspecified pre-eclampsia, complicating childbirth; O99.214 Obesity complicating childbirth; E66.01 Morbid (severe) obesity due to excess calories; O99.824 Streptococcus B carrier state complicating childbirth; O99.344 Other mental disorders complicating childbirth; F41.8 Other specified anxiety disorders; O99.284 Endocrine, nutritional and metabolic diseases complicating childbirth; E03.9 Hypothyroidism, unspecified; Z30.2 Encounter for sterilization
CPT/HCPCS: 36415; 80053; 84550; 85025; 88302; 88307; A9270; J0690; J1200; J1885; J2175; J2274; J2371; J2405; J2590; J7120

== ENCOUNTER 2023-09-01 09:42 | Outpatient (CLI) | payer OTHER, SELFPAY ==
[2023-09-01 10:29] VITALS: BP 136/83; PULSE 89
[2023-09-01 10:30] VITALS: BP 130/82; PULSE 87
[2023-09-01 10:38] LABS: Basophils Absolute Auto 0.1 K/mm3 (0.0-0.1); Basophils Percent Auto 0.6 % (0.2-1.2); Eosinophils Absolute Auto 0.2 K/mm3 (0-0.3); Eosinophils Percent Auto 1.9 % (0-4.4); Hematocrit 30.5 % (37.0-47.0); Hemoglobin 9.1 g/dL (12.0-15.0); Immature Granulocyte Absolute 0.05 K/mm3 (0.00-0.031); Immature Granulocyte Percent A 0.6 % (0-0.5); Lymphocytes Percent Auto 22.7 % (18.3-44.2); Mean Corpuscular HGB Conc 29.8 g/dl (32-36); Mean Corpuscular Volume 87.1 fl (80-100); Mean Platelet Volume 8.4 fl (7.4-10.4); Monocytes Absolute Auto 0.5 K/mm3 (0.1-0.6); Monocytes Percent Auto 6.1 % (2.6-8.5); Neutrophils Percent Auto 68.1 % (45.5-73.1); Platelet Count Result 308 k/mm3 (150-375); Red Cell Distribution Width 14.2 % (11.5-14.5); White Blood Count 8.8 K/mm3 (4.5-10.0)
[2023-09-01 10:41] VITALS: PULSE 87
[2023-09-01] MEDS: LABETALOL HCL 100 MG TABLET 200 MG PO (10:41)
[2023-09-01 10:44] LABS: Alanine Aminotransferase 11 U/L (6-35); Albumin Level 2.9 g/dL (3.5-5.1); Alkaline Phosphatase 121 U/L (38-126); Anion Gap 2 mmol/L (8-16); Aspartate Amino Transferase 23 U/L (14-36); Bilirubin,Total 0.3 mg/dL (0.2-1.3); Blood Urea Nitrogen 9 mg/dL (7-17); Calcium 8.3 mg/dL (8.4-10.2); Carbon Dioxide 29 mmol/L (22-30); Chloride 105 mmol/L (98-107); Estimated Glomerular Filt Rate > 60; Glucose 75 mg/dL (65-110); Potassium 4.4 mmol/L (3.4-5.0); Sodium 136 mmol/L (137-145)
[2023-09-01 10:45] VITALS: BP 128/78; PULSE 87
[2023-09-01 10:52] LABS: Hypochromasia 1+ (NORMAL); Platelet Estimate Adequate (Adequate); Schistocytes None Seen (NORMAL)
[2023-09-01 11:00] VITALS: BP 133/83; PULSE 91
[2023-09-01 11:15] VITALS: BP 124/80; PULSE 96
--- NOTE | 2023-09-01 11:15 | PC.NURSE ---
called Dr. Napoles reported PIH lab result and BP. discharge order received and follow up in office next week
== END 2023-09-01 11:25 | disposition home or self-care (01) ==
LOC: ANHOBOP 09:56 → ANHOBPP 09:57
PROVIDERS: PCP Nurse Practitioner Family; Visit Provider Obstetrics & Gynecology
DX: O13.9 Gestational [pregnancy-induced] hypertension without significant proteinuria, unspecified trimester (principal); Z3A.00 Weeks of gestation of pregnancy not specified
CPT/HCPCS: 36415; 80053; 84550; 85025; 99199; A9270